=== PATIENT | male | born 1975 ===

== ENCOUNTER 2016-12-25 15:15 | Inpatient (IN) | payer OTHER ==
--- NOTE | 2016-12-25 15:48 | C.PDOC ---
History Of Present Illness 41-year-old male, presents to the emergency department with complaints of worsening chest pain and shortness of breath for the past several days. Associated symptoms include dyspnea on exertion and "frothy cough" with deep inspiration. patient states he gets intermittent "angina" usually once a week for many years but now more frequent, "like I can't get a deep breath in." No fever, swelling or recent prolonged travel. Patient states he was previously on blood pressure meds but no longer takes due to diet and exercise. Pts average blood pressure at home is 120/100. Patient states no prior cardiac cath. Negative stress test in 2007. Patient denies a Hx of asthma. WORSENING CP, SOB X SEV DAYS. +CHE, +"FROTHY COUGH" W DEEP INSPIRATION. PS GETS INTERMIT "ANGINA" USUALLY ONCE A WEEK FOR MANY YEARS BUT NOW MORE FREQ. "LIKE I CANT GET A DEEP BREATH IN". NO FEVER, SWELL, RECENT PROLONGED TRAVEL. PS WAS PREV ON BP MEDS BUT NO LONGER TAKES DUE TO DIET AND EXERCISE. AVG BP @ HOME 120/ 100. PS NO PRIOR CARDIAC CATH. NEG STRESS 2007. DENIES HO ASTHMA. EXAM MILD DIST NONTOXIC LUNGS +TACHYPNEA +COUGH W PLEURITIC BREATHING CTA B/L NO W/R/R CV RRR SINUS TACH NO LEG SWELL, ASYM REMAINDE RNEG Time Seen by Provider: 12/25/16 15:30 Chief Complaint (Nursing): Chest Pain Past Medical History Reviewed: Historical Data, Nursing Documentation, Vital Signs Vital Signs: Last Vital Signs Temp 98.0 F 12/27/16 07:07 Pulse 124 H 12/27/16 07:07 Resp 20 12/27/16 08:21 BP 114/79 12/27/16 09:06 Pulse Ox 94 L 12/27/16 07:07 - Medical History PMH: HTN, Hypercholesterolemia, Pneumonia (2010) Family History: States: No Known Family Hx - Social History Hx Alcohol Use: Yes Hx Substance Use: No - Immunization History Hx Tetanus Toxoid Vaccination: Yes Hx Influenza Vaccination: No Hx Pneumococcal Vaccination: No Review Of Systems Except As Marked, All Systems Reviewed And Found Negative. Constitutional: Negative for: Fever Cardiovascular: Positive for: Chest Pain Respiratory: Positive for: Cough, Shortness of Breath, SOB with Excertion Gastrointestinal: Negative for: Nausea, Vomiting Musculoskeletal: Negative for: Back Pain Neurological: Negative for: Weakness, Numbness Physical Exam - Physical Exam Appears: Non-toxic, No Acute Distress Skin: Warm, Dry, No Rash Head: Atraumatic, Normacephalic Eye(s): bilateral: Normal Inspection Oral Mucosa: Moist Lips: Normal Appearing Neck: Normal ROM Chest: Symmetrical Cardiovascular: Rhythm Regular (tachycardia), No Murmur Respiratory: No Rales, No Rhonchi, No Wheezing, Other ( +TACHYPNEA +COUGH W PLEURITIC BREATHING CTA B/L NO W/R/R) Extremity: Normal ROM, No Pedal Edema ED Course And Treatment - Laboratory Results Result Diagrams: 12/27/16 06:56 12/27/16 06:56 ECG: Interpreted By Me ECG Rhythm: Sinus Tachycardia Rate From EC O2 Sat by Pulse Oximetry: 98 Pulse Ox Interpretation: Normal Progress - Re-Evaluation Re-evaluation Note: 12/25/16 16:43 EXAM UNCH. D/W DR CASTILLO WILL ADMIT - Data Reviewed Data Reviewed: Lab, Diagnostic imaging, EKG, Old records - Critical Care Citical Care: Excluding Proc Time Critical Care Time: 120 minutes - Continuity of Care Discussed patient case with:: Patient, Family-HIPPA compliant, On-call PMD-pt unassigned Disposition Counseled Patient/Family Regarding: Studies Performed, Diagnosis - Disposition Disposition: HOSPITALIZED Disposition Time: 16:43 Condition: STABLE - POA Present On Arrival: None - Clinical Impression Clinical Impression: New onset of congestive heart failure, Pneumonia, Dyspnea Decision To Admit - Pt Status Changed To: Hospital Disposition Of: Inpatient - Admit Certification Admit to Inpatient:: After my assessment, the patient will require hospitalization for at least two midnights. This is because of the severity of symptoms shown, intensity of services needed, and/or the medical risk in this patient being treated as an outpatient. - InPatient: Physician Admission Certification: I certify that this patient requires 2 or more midnights of care for the following reason:: SEE NOTE - . Bed Request Type: Telemetry Admitting Physician: Hugo Castillo Patient Diagnosis: New onset of congestive heart failure, Pneumonia, Dyspnea
[2016-12-25 16:07] LABS: BASO # 0.1 K/uL (0.0-0.2); BASO % 0.7 % (0.0-2.0); EOS # 0.1 K/uL (0.0-0.7); EOS % 1.1 % (0.0-4.0); HEMATOCRIT 43.2 % (35.0-51.0); LYMPH # 1.9 K/uL (1.0-4.3); MEAN CELL VOLUME 75.2 fL (80.0-94.0); MEAN CORPUSCULAR HEMOGLOBIN 24.8 pg (27.0-31.0); MEAN PLATELET VOLUME 10.3 fL (7.2-11.7); MONO # 1.2 K/uL (0.0-0.8); MONO % 11.9 % (0.0-10.0); NRBC % 0.1 % (0.0-2.0); WHITE BLOOD COUNT 10.5 K/uL (4.8-10.8)
[2016-12-25] MEDS ORDERED: cefTRIAXone IV 1 gm in Dextros 50 ML IV STA (16:09)
[2016-12-25] MEDS ORDERED: Azithromycin 500 MG in Sodium Chloride 0.9% 250 ML IV STA (16:09)
--- NOTE | 2016-12-25 16:09 | RAD ---
PROCEDURE: CHEST RADIOGRAPH, 1 VIEW HISTORY: SOB COMPARISON: None available. FINDINGS: LUNGS: Right lower lobe infiltrate. Prominent pulmonary vascularity. PLEURA: No pneumothorax or pleural fluid seen. CARDIOVASCULAR: Pulmonary vascular congestion. OSSEOUS STRUCTURES: No significant abnormalities. VISUALIZED UPPER ABDOMEN: Normal. OTHER FINDINGS: None. IMPRESSION: Right lower lobe infiltrate Pulmonary vascular congestion.
[2016-12-25] MEDS ORDERED: cefTRIAXone IV 1 gm in Dextros 50 ML IVPB ONE (16:16)
[2016-12-25 16:18] LABS: CHLORIDE 101 mmol/L (98-107)
[2016-12-25 16:19] LABS: SODIUM 140 mmol/L (132-148)
[2016-12-25 16:21] LABS: ALB/GLOB RATIO 1.2 (1.0-2.1); ALKALINE PHOSPHATASE 69 U/L (38-126); AST/SGOT 33 U/L (17-59); BILIRUBIN,TOTAL 1.1 mg/dL (0.2-1.3); CARBON DIOXIDE 26 mmol/L (22-30); GFR AFRICAN-AMERICAN > 60; TOTAL PROTEIN 7.1 g/dL (6.3-8.3)
[2016-12-25 16:22] LABS: ALT/SGPT 43 U/L (21-72); BLOOD UREA NITROGEN 19 mg/dL (9-20); CALCIUM 8.6 mg/dl (8.6-10.4); GLUCOSE,RANDOM 111 mg/dL (75-110)
[2016-12-25 16:23] LABS: INR 1.2; PARTIAL THROMBOPLASTIN TIME 31 SECONDS (21-34)
[2016-12-25 16:29] LABS: VENOUS BLOOD GAS BASE EXCESS 4.1 mmol/L (0.0-2.0); VENOUS BLOOD GAS PCO2 41 mmHg (40-60); VENOUS BLOOD PH 7.45 (7.32-7.43)
[2016-12-25] MEDS ORDERED: Azithromycin 500mg/250ML NS 500 MG/250 ML BAG IVPB ONE (16:53)
--- NOTE | 2016-12-25 17:33 | CP.PCM.HP ---
<Mara Edwards - Last Filed: 12/25/16 17:59> History of Present Illness - History of Present Illness History of Present Illness: Medicine Note for Dr. Hercules CC: SOB HPI: 41M with PMHx HTN, HLD, and Hypothyroidism presents to the ED complaining of SOB x 1 week. Patient noticed for the past month, his breath has been more labored when ambulating, walking up stairs, and walking for longer distances. He reports he has to sleep on 3-4 pillows at night, he is unable to lay flat. For the past week he stated he noticed he became SOB just ambulating short distances, and he has had to sleep sitting up completely. He admits to a productive cough with white/ clear sputum, SOB, and some chest pain accompanied with the coughing and sometimes during ambulation. Denied fever, chills, headache, abdominal pain, or urinary symptoms. PMHx: HTN, HLD, and Hypothyroidism PSHx: Denied Meds: Denied All: NKDA SHx: Admitted to smoking cigars 1-2 per month, social drinking, and denied any illicit drug use FM: DM, history of [place] Present on Admission - Present on Admission Any Indicators Present on Admission: No Review of Systems - Cardiovascular Cardiovascular: Chest Pain, Chest Pain with Activity - Respiratory Respiratory: Cough, Dyspnea, Hemoptysis, Dyspnea on Exertion, Pain on Inspiration, Chest Congestion, Pain with Coughing Past Patient History - Past Social History Smoking Status: Light Smoker < 10 Cigarettes Daily - CARDIAC Hx Hypercholesterolemia: Yes Hx Hypertension: Yes - PULMONARY Hx Pneumonia: Yes (2010) - PSYCHIATRIC Hx Substance Use: No Meds Allergies/Adverse Reactions: Allergies Allergy/AdvReac Type Severity Reaction Status Date / Time No Known Allergies Allergy Verified 12/25/16 15:23 Physical Exam - Constitutional Appears: In Acute Distress - Eye Exam Eye Exam: Normal appearance - ENT Exam ENT Exam: Mucous Membranes Moist - Neck Exam Additional comments: + JVD - Respiratory Exam Respiratory Exam: Rales, Rhonchi, NORMAL BREATHING PATTERN - Cardiovascular Exam Cardiovascular Exam: Tachycardia - GI/Abdominal Exam GI & Abdominal Exam: Normal Bowel Sounds, Soft. absent: Distended, Tenderness - Extremities Exam Extremities exam: Positive for: normal inspection, pedal edema, pedal pulses present. Negative for: tenderness - Neurological Exam Neurological exam: Alert, Oriented x3 - Psychiatric Exam Psychiatric exam: Anxious - Skin Skin Exam: Diaphoretic, Normal Color, Warm Results - Vital Signs Recent Vital Signs: Last Vital Signs Temp 98.8 F 12/25/16 15:46 Pulse 125 H 12/25/16 16:49 Resp 22 12/25/16 16:49 BP 140/84 12/25/16 16:49 Pulse Ox 94 L 12/25/16 16:49 - Labs Result Diagrams: 12/25/16 16:00 12/25/16 16:00 Labs: Laboratory Results - last 24 hr 12/25/16 12/25/16 12/25/16 16:00 16:00 16:00 WBC 10.5 RBC 5.75 Hgb 14.3 Hct 43.2 MCV 75.2 L MCH 24.8 L MCHC 33.0 RDW 15.0 H Plt Count 203 MPV 10.3 Neut % (Auto) 68.3 Lymph % (Auto) 18.0 L Millard % (Auto) 11.9 H Eos % (Auto) 1.1 Baso % (Auto) 0.7 Neut # 7.1 H Lymph # 1.9 Millard # 1.2 H Eos # 0.1 Baso # 0.1 PT 13.1 H INR 1.2 APTT 31 D-Dimer, Quantitative < 200 pO2 VBG pH VBG pCO2 VBG HCO3 VBG Total CO2 VBG O2 Sat (Calc) VBG Base Excess VBG Potassium Glucose Lactate FiO2 Sodium 140 Potassium 4.0 Chloride 101 Carbon Dioxide 26 Anion Gap 17 BUN 19 Creatinine 1.0 Est GFR ( Amer) > 60 Est GFR (Non-Af Amer) > 60 Random Glucose 111 H Calcium 8.6 Total Bilirubin 1.1 AST 33 ALT 43 Alkaline Phosphatase 69 Troponin I 0.0340 NT-Pro-B Natriuret Pep 3120 H Total Protein 7.1 Albumin 3.9 Globulin 3.2 Albumin/Globulin Ratio 1.2 Venous Blood Potassium 12/25/16 16:20 WBC RBC Hgb Hct MCV MCH MCHC RDW Plt Count MPV Neut % (Auto) Lymph % (Auto) Millard % (Auto) Eos % (Auto) Baso % (Auto) Neut # Lymph # Millard # Eos # Baso # PT INR APTT D-Dimer, Quantitative pO2 35 VBG pH 7.45 H VBG pCO2 41 VBG HCO3 27.4 VBG Total CO2 29.8 H VBG O2 Sat (Calc) 76.7 H VBG Base Excess 4.1 H VBG Potassium 3.8 Glucose 87 Lactate 1.8 FiO2 21.0 Sodium 141.0 Potassium Chloride 110.0 H Carbon Dioxide Anion Gap BUN Creatinine Est GFR ( Amer) Est GFR (Non-Af Amer) Random Glucose Calcium Total Bilirubin AST ALT Alkaline Phosphatase Troponin I NT-Pro-B Natriuret Pep Total Protein Albumin Globulin Albumin/Globulin Ratio Venous Blood Potassium 3.8 Assessment & Plan - Assessment and Plan (Free Text) Plan: New Onset CHF * Admit to Telemetry * BNP: 3120 * EKG: Sinus Tachycardia @135 * CXR: RLL infiltrate, cardiomegaly, venous congestion * D-dimer <200 * Lasix 40mg IVP Q12H * Cardiology consulted- Dr. Judge- help appreciated * F/U ECHO * F/U ROMIx 2, EKG x2 HTN * Started on ASA 81mg PO daily, Coreg 3.125mg PO BID, Lisinoprl 5mg PO daily HLD * Crestor 5mg PO QHS * F/U Lipid Panel Hypothyroidism * Patient is noncompliant with medications * F/U TSH, T3, T4 Prophylactic Measures * GI PPX: Protonix 20mg PO daily * DVT PPX: SCDs, lovenox 40units SC daily * Heart Healthy Diet with 1500mL fluid restriction * Daily Weights * Strict I & Os DW Grace Conway DO, PGY-1 <Hugo Hercules - Last Filed: 12/26/16 07:31> Results - Vital Signs Recent Vital Signs: Last Vital Signs Temp 98.4 F 12/26/16 04:15 Pulse 118 H 12/26/16 04:15 Resp 20 12/26/16 05:11 BP 110/79 12/26/16 04:15 Pulse Ox 99 12/26/16 04:15 - Labs Result Diagrams: 12/26/16 06:17 12/25/16 16:00 Labs: Laboratory Results - last 24 hr 12/26/16 12/26/16 12/26/16 00:24 06:17 06:17 WBC 12.6 H RBC 5.57 Hgb 13.8 Hct 41.6 MCV 74.8 L MCH 24.8 L MCHC 33.1 RDW 15.0 H Plt Count 196 MPV 10.1 Neut % (Auto) 66.7 Lymph % (Auto) 20.6 Millard % (Auto) 10.0 Eos % (Auto) 1.8 Baso % (Auto) 0.9 Neut # 8.4 H Lymph # 2.6 Millard # 1.3 H Eos # 0.2 Baso # 0.1 Total Creatine Kinase 204 H CK-MB (Mass) 0.64 Troponin I, Quant 0.0360 Free T4 1.11 Attending/Attestation - Attestation I have personally seen and examined this patient.: Yes I have fully participated in the care of the patient.: Yes I have reviewed all pertinent clinical information: Yes Notes (Text): Medical Attending: Patient was seen and examined by me as well, agree with the above note by the resident. As mentioned above in the resident note the patient remarked that he thought he was doing ok until several weeks ago he noticed CHE that seemed to get worse, orthopnea as well. Especially at night. For now will start giving IV Lasix, follow the CXRAYs and how the patient is breathing. HE does have cardiomegalm on the film, will also check an echo as well. His HR was elevated, sinus when we saw him probably from the fluid overload. Also history of hypothyroidism so will check TSH as well. Cardiac enymes, repeat EKGs. He explains that he has a history of HTN but has not taken medication in sometime. For now BRODY I, Statin, ASA, and he will also need BB for now a very low dose and then more later on. thank you Hugo Hercules
[2016-12-26 06:32] LABS: BASO # 0.1 K/uL (0.0-0.2); BASO % 0.9 % (0.0-2.0); EOS # 0.2 K/uL (0.0-0.7); EOS % 1.8 % (0.0-4.0); HEMATOCRIT 41.6 % (35.0-51.0); LYMPH # 2.6 K/uL (1.0-4.3); LYMPH % 20.6 % (20.0-40.0); MEAN CELL VOLUME 74.8 fL (80.0-94.0); MEAN CORPUSCULAR HEMOGLOBIN 24.8 pg (27.0-31.0); MEAN CORPUSCULAR HGB CONC 33.1 g/dL (33.0-37.0); MEAN PLATELET VOLUME 10.1 fL (7.2-11.7); MONO # 1.3 K/uL (0.0-0.8); NRBC % 0.1 % (0.0-2.0); WHITE BLOOD COUNT 12.6 K/uL (4.8-10.8)
[2016-12-26 06:59] LABS: CHLORIDE 99 mmol/L (98-107); POTASSIUM 3.8 mmol/L (3.6-5.2); SODIUM 137 mmol/L (132-148)
[2016-12-26 07:01] LABS: ALB/GLOB RATIO 1.2 (1.0-2.1); ALKALINE PHOSPHATASE 72 U/L (38-126); AST/SGOT 36 U/L (17-59); BILIRUBIN,TOTAL 1.3 mg/dL (0.2-1.3); BLOOD UREA NITROGEN 17 mg/dL (9-20); CARBON DIOXIDE 27 mmol/L (22-30); CHOLESTEROL 182 mg/dL (0-199); GFR AFRICAN-AMERICAN > 60; TOTAL PROTEIN 6.8 g/dL (6.3-8.3)
[2016-12-26 07:02] LABS: ALT/SGPT 36 U/L (21-72); CALCIUM 8.6 mg/dl (8.6-10.4); GLUCOSE,RANDOM 114 mg/dL (75-110); MAGNESIUM 1.9 mg/dL (1.6-2.3); PHOSPHOROUS 4.1 mg/dL (2.5-4.5)
[2016-12-26 07:20] LABS: THYROID STIMULATING HORMONE 4.43 mIU/L (0.46-4.68)
[2016-12-26 08:22] LABS: FT3 4.65 pg/mL (2.77-5.27)
[2016-12-26] MEDS: Enoxaparin 40 mg Syringe SC SCH (09:48)
[2016-12-26] MEDS ORDERED: Pantoprazole 20 mg EC Tab PO SCH (10:00)
--- NOTE | 2016-12-26 11:19 | CP.PCM.PN ---
<Mara Edwards - Last Filed: 12/26/16 11:16> Subjective - Date & Time of Evaluation Date of Evaluation: 12/26/16 Time of Evaluation: 07:00 - Subjective Subjective: Medicine Note for Dr. Hercules, Patient was seen and examined at bedside. Patient reported his breathing slightly improved after receiving the lasix, however he was still unable to sleep last night due to SOB. Patient continues to have a productive cough with white/ clear sputum. Admitted to diaphoresis, cough, SOB. Denied fever, chills, headache, chest pain, abdominal pain, n/v/d/c, or urinary symptoms. Objective - Vital Signs/Intake and Output Vital Signs (last 24 hours): Temp Pulse Resp BP Pulse Ox 97.6 F 118 H 20 106/74 98 12/26/16 07:29 12/26/16 10:55 12/26/16 08:27 12/26/16 09:49 12/26/16 07:29 Intake and Output: 12/26/16 12/26/16 06:59 18:59 Intake Total 390 Output Total 2700 Balance -2310 - Medications Medications: Current Medications Aspirin (Aspirin Chewable) 81 mg PO DAILY [facility] Last Admin: 12/26/16 09:48 Dose: 81 mg Carvedilol (Coreg) 3.125 mg PO BID [facility] Last Admin: 12/26/16 09:48 Dose: 3.125 mg Enoxaparin Sodium (Lovenox) 40 mg SC DAILY [facility] Last Admin: 12/26/16 09:48 Dose: 40 mg Furosemide (Lasix) 40 mg IVP Q12 [facility] Last Admin: 12/26/16 09:49 Dose: 40 mg Ceftriaxone Sodium (Rocephin Iv 1 Gm Duplex) 50 mls @ 100 mls/hr IVPB DAILY [facility] Azithromycin (Zithromax 500mg In Ns Addvantage) 500 mg in 250 mls @ 167 mls/hr IVPB Q24H [facility] Lisinopril (Zestril) 5 mg PO DAILY [facility] Last Admin: 12/26/16 09:48 Dose: 5 mg Pantoprazole Sodium (Protonix Ec Tab) 20 mg PO DAILY [facility] Last Admin: 12/26/16 09:48 Dose: 20 mg Rosuvastatin Calcium (Crestor) 5 mg PO HS [facility] Last Admin: 12/25/16 21:46 Dose: 5 mg - Labs Labs: 12/26/16 06:17 12/26/16 06:17 PT 13.1 SECONDS (9.7-12.2) H 12/25/16 16:00 INR 1.2 12/25/16 16:00 APTT 31 SECONDS (21-34) 12/25/16 16:00 - Constitutional Appears: Other (Diaphoretic, mild distress) - Head Exam Head Exam: NORMAL INSPECTION, NORMOCEPHALIC - Respiratory Exam Respiratory Exam: Rhonchi, Wheezes - Cardiovascular Exam Cardiovascular Exam: Tachycardia - GI/Abdominal Exam GI & Abdominal Exam: Soft, Normal Bowel Sounds. absent: Distended, Tenderness - Extremities Exam Extremities Exam: Normal Inspection. absent: Pedal Edema, Tenderness - Neurological Exam Neurological Exam: Alert, Awake, Oriented x3 - Skin Skin Exam: Dry, Intact, Normal Color, Warm Assessment and Plan - Assessment and Plan (Free Text) Plan: New Onset CHF * Admit to Telemetry * BNP: 3120 * EKG: Sinus Tachycardia @135 * CXR: RLL infiltrate, cardiomegaly, venous congestion * D-dimer <200 * Lasix 40mg IVP Q12H * ROMIs negative, no changes on EKG * Cardiology consulted- Dr. Hillman- help appreciated * F/U ECHO Possible PNA * CXR: RLL infiltrate, cardiomegaly, venous congestion * Started on Azithromycin and Rocephin 12/25 * CT Chest w/o Contrast HTN * Started on ASA 81mg PO daily, Coreg 3.125mg PO BID, Lisinoprl 5mg PO daily HLD * Crestor 5mg PO QHS * Lipid Panel- Triglycerides 157 Hypothyroidism * Patient is noncompliant with medications * TSH, T3, T4 - WNL Prophylactic Measures * GI PPX: Protonix 20mg PO daily * DVT PPX: SCDs, lovenox 40units SC daily * Heart Healthy Diet with 1500mL fluid restriction * Daily Weights * Strict I & Os DW Grace Conway DO, PGY-1 <Hugo Hercules - Last Filed: 12/26/16 12:17> Objective - Vital Signs/Intake and Output Vital Signs (last 24 hours): Temp Pulse Resp BP Pulse Ox 97.6 F 118 H 20 106/74 98 12/26/16 07:29 12/26/16 10:55 12/26/16 08:27 12/26/16 09:49 12/26/16 07:29 Intake and Output: 12/26/16 12/26/16 06:59 18:59 Intake Total 390 Output Total 2700 Balance -2310 - Medications Medications: Current Medications Aspirin (Aspirin Chewable) 81 mg PO DAILY [facility] Last Admin: 12/26/16 09:48 Dose: 81 mg Carvedilol (Coreg) 3.125 mg PO BID [facility] Last Admin: 12/26/16 09:48 Dose: 3.125 mg Enoxaparin Sodium (Lovenox) 40 mg SC DAILY [facility] Last Admin: 12/26/16 09:48 Dose: 40 mg Furosemide (Lasix) 40 mg IVP Q12 [facility] Last Admin: 12/26/16 09:49 Dose: 40 mg Ceftriaxone Sodium (Rocephin Iv 1 Gm Duplex) 50 mls @ 100 mls/hr IVPB DAILY [facility] Azithromycin 500 mg/ Sodium (Chloride) 250 mls @ 167 mls/hr IVPB Q24H [facility] Lisinopril (Zestril) 5 mg PO DAILY [facility] Last Admin: 12/26/16 09:48 Dose: 5 mg Pantoprazole Sodium (Protonix Ec Tab) 20 mg PO DAILY [facility] Last Admin: 12/26/16 09:48 Dose: 20 mg Rosuvastatin Calcium (Crestor) 5 mg PO HS [facility] Last Admin: 12/25/16 21:46 Dose: 5 mg - Labs Labs: 12/26/16 06:17 12/26/16 06:17 PT 13.1 SECONDS (9.7-12.2) H 12/25/16 16:00 INR 1.2 12/25/16 16:00 APTT 31 SECONDS (21-34) 12/25/16 16:00 Attending/Attestation - Attestation I have personally seen and examined this patient.: Yes I have fully participated in the care of the patient.: Yes I have reviewed all pertinent clinical information, including history, physical exam and plan: Yes Notes (Text): 12/26/16 12:08 Medical Attending: Patient was seen and examined by me. Agree with the above note by the resident. He is still short of breath however reporting improvment from before. The WBC is 12, and so because he is still persistent in shortness of breath will check CT of the chest without contrast. Also cover with IV abx as well Currently pending echo results thank you Hugo Hercules
[2016-12-26] MEDS ORDERED: Azithromycin 500 MG in Sodium Chloride 0.9% 250 ML IVPB SCH (12:00)
--- NOTE | 2016-12-26 12:26 | CT ---
PROCEDURE: CT Chest without contrast HISTORY: r/o pneumonia COMPARISON: None. TECHNIQUE: Contiguous axial images were obtained through the chest without intravenous contrast enhancement. Sagittal and coronal reconstructions were performed. Radiation dose (DLP): 368722 mGy-cm. This CT exam was performed using one or more of the following dose reduction techniques: Automated exposure control, adjustment of the mA and/or kV according to patient size, and/or use of iterative reconstruction technique. FINDINGS: LUNGS: Multifocal alveolar infiltrates affecting right upper lobe, right middle lobe and right lower lobe. Subsegmental infiltrate left upper lobe. Linear atelectasis/ scarring in the lingula and left lower lobe. No discrete pulmonary nodules or masses. MEDIASTINUM: Unremarkable thoracic aorta. No aneurysm. Normal sized heart. Main pulmonary artery unremarkable. No vascular congestion. Multiple enlarged mediastinal lymph nodes the largest is and azygos node measuring 1.9 x 2.2 cm. The preponderance of these nodes however 1.5 cm and less. PLEURA: No pleural fluid. No pneumothorax. BONES: No fracture. No destructive lesion. UPPER ABDOMEN: Multiple pathic masses right lobe and left lobe the largest measures 1.5 cm. Mean Hounsfield unit values do not exceed 10 for any of the masses. New line Incidental finding(s): Mildly enlarged left adrenal gland likely small adenoma. OTHER FINDINGS: None. IMPRESSION: Multifocal infiltrates primarily affecting all lobes of the right lung and to lesser extent left upper lobe likely infectious/ inflammatory. Mediastinal adenopathy. , on nonspecific. No evidence of axillary or supraclavicular adenopathy.
[2016-12-26] MEDS: Calcium Carbonate 500 mg Chewable Antacid Tab PO SCH ×2 (13:50→22:45)
[2016-12-26] MEDS ORDERED: cefTRIAXone IV 1 gm in Dextros 50 ML IVPB SCH (14:00)
--- NOTE | 2016-12-26 16:30 | CON ---
DATE: 12/26/2016 REQUESTING PHYSICIAN: The hospitalist group. LOCATION: Presently in room 651-B. REASON FOR CONSULTATION: Requested to see this 41-year-old male due to congestive heart philaranza nunes. HISTORY OF PRESENT ILLNESS: The patient has a history of hypertension for many, many years and he wa s hospitalized in 2003 for hypertension and at which time he was told he said that his heart was weak and enlarged. Since that situation, he was taking medications off and on and doing relatively well, working hard. However, over the last several weeks, he noticed that he is short of breath with mild exertion and he has been coughing for the last several days. He came to the Emergency Room last nig ht and he was immediately attended by the hospitalist staff, and empirically he was given antibiotics as well as anti-decongestive treatment because of the combination of heart failure as well as a pneu monia. At this point in time, he claims he is feeling a little better. I saw him while the attending nurse was taking care of his IV medications. ALLERGIES: He denies any allergies. MEDICATIONS: He was not taking medications on the outside. SOCIAL HISTORY: He used to work in a [employer] place. He himself has tattoos all over his body, from t he top of his head all the way down to the arms, fingers, lets, etc. He claimed he was tested years back for hepatitis B as well as for HIV. He smokes rarely cigars. PAST MEDICAL HISTORY: He also has a history of hypothyroidism and diabetes. No history of any coron marcus artery disease. I mention this because somewhat in the chart there is some place I read that he had a stent deployed in 2013, but he is denying having any stents. REVIEW OF SYSTEMS: Other than the above, they are otherwise negative. PHYSICAL EXAMINATION: GENERAL: Reveals a relatively young male, very pleasant, appears in no distress, although he was sti ll getting oxygen now, and he actually feels a little better since arrival. VITAL SIGNS: Blood pressure is about 110/60. Continuous cardiac monitoring shows marginal sinus tac hycardia. Respiratory rate is about 22 per minute. He feels clinically afebrile. SKIN: Again shows tattoos all over the body. No redness. No track beltrán otherwise. HEAD, EARS, NOSE AND THROAT: Otherwise negative. CHEST: With scattered subcrepitation. No rhonchi at this time. CARDIAC: Jugular veins not distended at 45 degrees in bed. Heart sounds with a summation gallop, mariana rderline tachycardic. There is a slight murmur noted along the sternal border, grade II/. ABDOMEN: Soft, no gross organomegaly. CENTRAL NERVOUS SYSTEM: Alert, oriented, moving all extremities normally. COMPLIMENTARY DATA: From the cardiological viewpoint there are several electrocardiograms showing sl ight sinus tachycardia, some with nonspecific ST-T changes; nothing spectacular. The initial proBNP elevated about 3000 or so with normal troponins. Chest x-ray: Cardiomegaly and infiltrates with pul monary congestion just about everywhere. Very, very important - an echocardiogram that was done and just a few minutes ago, I just saw it. It shows severely depressed biventricular function, and the left ventricle is globular and with perhaps borderline hypertrophy but it is significantly dilated and with profoundly decreased overall systoli c function. The anterior wall appears to be slightly more hypokinetic, however, this may be just due to the severe cardiomyopathy. In addition, there is some mild to moderate mitral regurgitation, pavan e mild tricuspid regurgitation - all functional. In addition, there is significant diastolic dysfunc tion with at least a grade III transmitral Doppler flow pattern. The left atrial pressure is elevate d by tissue Doppler. IMPRESSION: Biventricular acute on chronic systolic and diastolic heart failure; etiology unclear bu t most likely hypertensive in origin. SUGGESTION: I have reviewed the treatment approach at this point in time, and I concur with you to c ontinue loop diuretics, BRODY inhibitors as well as beta gustavo in the form as it is right now with ca rvedilol. Obviously this medication will need to be optimized over time. Even though he has no syncope and no evidence of any potentially lethal arrhythmias at this point, a possibility is that prior to discharge to consult the yoke presser looking for the possibility to have an external defibrillator and vest for several months while his cardiac function improves. If this does not happen and continues to be in the same range, then he should be considered for an im plantable automatic defibrillator. Clemente Hillman MD cc: [id number] TT: 12/26/2016 16:29:33 Confirmation # [id number] Dictation # [id number] mn
--- NOTE | 2016-12-26 20:20 | CARD ---
APPROVED REPORT EXAM: Two-dimensional and M-mode echocardiogram with Doppler and color Doppler. Other Information Quality : GoodRhythm : NSR INDICATION Dyspnea CAD Congestive Heart Failure NEW ON SET CHF, PNEUMONIA RISK FACTORS Hypertension M-Mode DIMENSIONS RVDd1.84 (2.1-3.2cm)Left Atrium (MM)4.06 (2.5-4.0cm) IVSd0.94 (0.7-1.1cm)Aortic Root3.44 (2.2-3.7cm) LVDd7.26 (4.0-5.6cm)Aortic Cusp Exc.2.03 (1.5-2.0cm) PWd1.13 (0.7-1.1cm)FS (%) 9 % LVDs6.64 (2.0-3.8cm)LVEF (%)18 (>50%) Aortic Valve AoV Peak Yasblvfd42.7cm/Jayesh Peak GR.3mmHg Mitral Valve MV E Arcktvks316.3cm/sMV A Bmktkimm22.0cm/sE/A ratio3.0 TDI E/Lateral E'0.0E/Medial E'0.0 Tricuspid Valve TR Peak Dauntltl413kh/sTR Peak Gr.[id number] LEFT VENTRICLE The Left Ventricle is severely dilated. There is normal left ventricular wall thickness. The systolic function is severely impaired. There is global hypokinesis of the left ventricle. No left ventricle thrombus noted on this study. RIGHT VENTRICLE The right ventricle is normal size. There is normal right ventricular wall thickness. RV Systolic function is severely reduced. ATRIA The left atrium is borderline dilated. The right atrium size is normal. AORTIC VALVE The aortic valve is normal in structure. No aortic regurgitation is present. MITRAL VALVE The mitral valve is normal in structure. Mitral regurgitation is moderate. TRICUSPID VALVE The tricuspid valve is normal in structure. GREAT VESSELS The aortic root is normal in size. The IVC is normal in size and collapses >50% with inspiration. PERICARDIAL EFFUSION There is no pericardial effusion. <Conclusion> The Left Ventricle is severely dilated. There is normal left ventricular wall thickness. The systolic function is severely impaired. There is global hypokinesis of the left ventricle. No left ventricle thrombus noted on this study. RV Systolic function is severely reduced. Mitral regurgitation is moderate.
--- NOTE | 2016-12-27 01:57 | CARD ---
APPROVED REPORT EKG Measurement Heart [id number] <Conclusion> Sinus tachycardia Nonspecific T wave abnormality Abnormal ECG
[2016-12-27 07:10] LABS: BASO # 0.1 K/uL (0.0-0.2); BASO % 0.8 % (0.0-2.0); EOS # 0.4 K/uL (0.0-0.7); EOS % 2.7 % (0.0-4.0); HEMATOCRIT 43.7 % (35.0-51.0); LYMPH # 1.9 K/uL (1.0-4.3); LYMPH % 13.2 % (20.0-40.0); MEAN CELL VOLUME 75.7 fL (80.0-94.0); MEAN CORPUSCULAR HEMOGLOBIN 24.6 pg (27.0-31.0); MEAN CORPUSCULAR HGB CONC 32.5 g/dL (33.0-37.0); MEAN PLATELET VOLUME 10.6 fL (7.2-11.7); MONO % 6.8 % (0.0-10.0); RED CELL DISTRIBUTION WIDTH 14.9 % (11.5-14.5); WHITE BLOOD COUNT 14.1 K/uL (4.8-10.8)
[2016-12-27 07:13] LABS: CHLORIDE 99 mmol/L (98-107)
[2016-12-27 07:14] LABS: POTASSIUM 3.8 mmol/L (3.6-5.2); SODIUM 139 mmol/L (132-148)
[2016-12-27 07:16] LABS: ALB/GLOB RATIO 1.1 (1.0-2.1); ALKALINE PHOSPHATASE 64 U/L (38-126); ALT/SGPT 40 U/L (21-72); AST/SGOT 37 U/L (17-59); BILIRUBIN,TOTAL 0.9 mg/dL (0.2-1.3); BLOOD UREA NITROGEN 22 mg/dL (9-20); CARBON DIOXIDE 31 mmol/L (22-30); GFR AFRICAN-AMERICAN > 60; GLUCOSE,RANDOM 98 mg/dL (75-110); TOTAL PROTEIN 6.9 g/dL (6.3-8.3)
[2016-12-27 07:17] LABS: CALCIUM 8.4 mg/dl (8.6-10.4); MAGNESIUM 2.3 mg/dL (1.6-2.3); PHOSPHOROUS 4.1 mg/dL (2.5-4.5)
[2016-12-27] MEDS: Calcium Carbonate 500 mg Chewable Antacid Tab PO SCH ×2 (09:05→18:31)
[2016-12-27] MEDS: Enoxaparin 40 mg Syringe SC SCH (09:06)
[2016-12-27] MEDS: Magnesium Sulfate 1 gm in D5W 1 GM/100 ML BAG IVPB SCH ×2 (09:06→10:16)
[2016-12-27] MEDS: Pantoprazole 40 mg EC Tab PO SCH (09:14)
--- NOTE | 2016-12-27 09:30 | CP.PCM.CON ---
History of Present Illness - History of Present Illness History of Present Illness: 41 year old male who presented to [facility] after feeing worse dyspnea on exertion shortness of breath. Family history of diabetes. 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 Has been drinking as well. No cp, nausea dysuria Review of Systems - Review of Systems Systems not reviewed;Unavailable: Acuity of Condition - Constitutional Constitutional: absent: Sleep Apnea - EENT Eyes: absent: Blurred Vision Ears: absent: Ear Discharge Nose/Mouth/Throat: absent: Nasal Discharge - Cardiovascular Cardiovascular: Dyspnea, Dyspnea on Exertion - Respiratory Respiratory: Dyspnea, Dyspnea on Exertion - Gastrointestinal Gastrointestinal: absent: Belching - Genitourinary Genitourinary: absent: Dysuria - Musculoskeletal Musculoskeletal: absent: Arthralgias - Integumentary Integumentary: absent: Bleeding Lesions - Neurological Neurological: absent: Focal Weakness - Psychiatric Psychiatric: absent: Anxiety - Hematologic/Lymphatic Hematologic: absent: Easy Bleeding Past Patient History - Past Medical History & Family History Past Medical History?: Yes - Past Social History Smoking Status: Light Smoker < 10 Cigarettes Daily - CARDIAC Hx Hypercholesterolemia: Yes Hx Hypertension: Yes - PULMONARY Hx Pneumonia: Yes (2010) - RENAL Hx Kidney Stones: Yes - ENDOCRINE/METABOLIC Hx Endocrine Disorders: Yes Hx Hypothyroidism: Yes - MUSCULOSKELETAL/RHEUMATOLOGICAL Hx Falls: No - PSYCHIATRIC Hx Substance Use: No - SURGICAL HISTORY Hx Tonsillectomy: Yes - ANESTHESIA Hx Anesthesia: Yes Hx Anesthesia Reactions: No Hx Malignant Hyperthermia: No Has any member of the family had a problem w/ anesthesia?: No Meds Allergies/Adverse Reactions: Allergies Allergy/AdvReac Type Severity Reaction Status Date / Time No Known Allergies Allergy Verified 12/25/16 15:23 - Medications Medications: Current Medications Aspirin (Aspirin Chewable) 81 mg PO DAILY [facility] Last Admin: 12/27/16 09:05 Dose: 81 mg Calcium Carbonate (Tums) 500 mg PO BID [facility] Last Admin: 12/27/16 09:05 Dose: 500 mg Carvedilol (Coreg) 3.125 mg PO BID [facility] Last Admin: 12/27/16 09:05 Dose: 3.125 mg Enoxaparin Sodium (Lovenox) 40 mg SC DAILY [facility] Last Admin: 12/27/16 09:06 Dose: 40 mg Furosemide (Lasix) 20 mg IVP Q12 [facility] Last Admin: 12/27/16 09:06 Dose: 20 mg Ceftriaxone Sodium (Rocephin Iv 1 Gm Duplex) 50 mls @ 100 mls/hr IVPB DAILY [facility] Last Admin: 12/26/16 13:40 Dose: 100 mls/hr Azithromycin 500 mg/ Sodium (Chloride) 250 mls @ 167 mls/hr IVPB Q24H [facility] Last Admin: 12/26/16 12:06 Dose: 167 mls/hr Magnesium Sulfate/Dextrose (Magnesium Sulfate 1 Gm/100 Ml D5w) 1 gm in 100 mls @ 300 mls/hr IVPB Q30M [facility] Stop: 12/27/16 09:49 Last Admin: 12/27/16 09:06 Dose: 300 mls/hr Lisinopril (Zestril) 5 mg PO DAILY [facility] Last Admin: 12/27/16 09:05 Dose: 5 mg Pantoprazole Sodium (Protonix Ec Tab) 40 mg PO DAILY [facility] Last Admin: 12/27/16 09:14 Dose: 40 mg Rosuvastatin Calcium (Crestor) 5 mg PO HS [facility] Last Admin: 12/26/16 22:45 Dose: 5 mg Physical Exam - Constitutional Appears: No Acute Distress - Head Exam Head Exam: ATRAUMATIC - Eye Exam Eye Exam: Normal appearance - ENT Exam ENT Exam: Mucous Membranes Moist - Respiratory Exam Respiratory Exam: Rhonchi, NORMAL BREATHING PATTERN - Cardiovascular Exam Cardiovascular Exam: REGULAR RHYTHM, Systolic Murmur - GI/Abdominal Exam GI & Abdominal Exam: Normal Bowel Sounds, Soft - Exam External exam: NORMAL EXTERNAL EXAM - Extremities Exam Extremities exam: Positive for: normal inspection - Neurological Exam Neurological exam: Alert - Psychiatric Exam Psychiatric exam: Normal Affect, Normal Mood - Skin Skin Exam: Dry Results - Vital Signs Recent Vital Signs: Last Vital Signs Temp 98.0 F 12/27/16 07:07 Pulse 124 H 12/27/16 07:07 Resp 20 12/27/16 08:21 BP 114/79 12/27/16 09:06 Pulse Ox 94 L 12/27/16 07:07 - Labs Result Diagrams: 12/27/16 06:56 12/27/16 06:56 Labs: Laboratory Results - last 24 hr 12/26/16 12/27/16 12/27/16 12:05 06:56 06:56 WBC 14.1 H RBC 5.77 Hgb 14.2 Hct 43.7 MCV 75.7 L MCH 24.6 L MCHC 32.5 L RDW 14.9 H Plt Count 235 MPV 10.6 Neut % (Auto) 76.5 H Lymph % (Auto) 13.2 L Jackson % (Auto) 6.8 Eos % (Auto) 2.7 Baso % (Auto) 0.8 Neut # 10.7 H Lymph # 1.9 Jackson # 1.0 H Eos # 0.4 Baso # 0.1 Sodium 139 Potassium 3.8 Chloride 99 Carbon Dioxide 31 H Anion Gap 13 BUN 22 H Creatinine 1.1 Est GFR ( Amer) > 60 Est GFR (Non-Af Amer) > 60 Random Glucose 98 Calcium 8.4 L Phosphorus 4.1 Magnesium 2.3 Total Bilirubin 0.9 AST 37 ALT 40 Alkaline Phosphatase 64 Total Creatine Kinase 215 H CK-MB (Mass) 0.65 Troponin I, Quant 0.0230 Total Protein 6.9 Albumin 3.7 Globulin 3.3 Albumin/Globulin Ratio 1.1 Assessment & Plan (1) Dyspnea Assessment and Plan: Acute exacerbation of CHF echo 18 Percent ICD vest for dilated cardiomyopathy with reduced ejection fraction for primary prophylaxis against sudden cardiac optimal CHF meds we discussed coming to the [facility] if he has trouble paying for medications Also no etoh or salt Status: Acute (2) New onset of congestive heart failure Status: Acute
--- NOTE | 2016-12-27 12:06 | CP.PCM.PN ---
<Mara Edwards - Last Filed: 12/27/16 12:03> Subjective - Date & Time of Evaluation Date of Evaluation: 12/27/16 Time of Evaluation: 07:00 - Subjective Subjective: Medicine Note for Dr. Hercules, Patient was seen and examined at bedside. Patient reported his breathing slightly improved after receiving the lasix, however now he feels dehydrated ( dry mouth). He refused his night dose of lasix. Patient was seen by Dr. Peralta for LifeVest. Patient still has some SOB, but it has improved since admission. Denied fever, chills, headache, chest pain, abdominal pain, n/v/d/c, or urinary symptoms. Objective - Vital Signs/Intake and Output Vital Signs (last 24 hours): Temp Pulse Resp BP Pulse Ox 98.0 F 124 H 20 114/79 98 12/27/16 07:07 12/27/16 07:07 12/27/16 08:21 12/27/16 09:06 12/27/16 09:55 Intake and Output: 12/27/16 12/27/16 06:59 18:59 Intake Total 350 Output Total 900 Balance -550 - Medications Medications: Current Medications Aspirin (Aspirin Chewable) 81 mg PO DAILY [facility] Last Admin: 12/27/16 09:05 Dose: 81 mg Calcium Carbonate (Tums) 500 mg PO BID [facility] Last Admin: 12/27/16 09:05 Dose: 500 mg Carvedilol (Coreg) 6.25 mg PO BID [facility] Enoxaparin Sodium (Lovenox) 40 mg SC DAILY [facility] Last Admin: 12/27/16 09:06 Dose: 40 mg Furosemide (Lasix) 20 mg IVP Q12 [facility] Last Admin: 12/27/16 09:06 Dose: 20 mg Cefepime HCl 1 gm/ Dextrose 50 mls @ 100 mls/hr IVPB Q12H [facility] Lisinopril (Zestril) 5 mg PO DAILY [facility] Last Admin: 12/27/16 09:05 Dose: 5 mg Pantoprazole Sodium (Protonix Ec Tab) 40 mg PO DAILY [facility] Last Admin: 12/27/16 09:14 Dose: 40 mg Rosuvastatin Calcium (Crestor) 5 mg PO HS [facility] Last Admin: 12/26/16 22:45 Dose: 5 mg Spironolactone (Aldactone) 25 mg PO DAILY [facility] Last Admin: 12/27/16 10:57 Dose: 25 mg - Labs Labs: 12/27/16 06:56 12/27/16 06:56 PT 13.1 SECONDS (9.7-12.2) H 12/25/16 16:00 INR 1.2 12/25/16 16:00 APTT 31 SECONDS (21-34) 12/25/16 16:00 - Constitutional Appears: No Acute Distress - Head Exam Head Exam: NORMAL INSPECTION, NORMOCEPHALIC - Respiratory Exam Respiratory Exam: Clear to Ausculation Bilateral, NORMAL BREATHING PATTERN. absent: Rales, Wheezes - Cardiovascular Exam Cardiovascular Exam: Tachycardia - GI/Abdominal Exam GI & Abdominal Exam: Soft, Normal Bowel Sounds. absent: Distended, Tenderness - Extremities Exam Extremities Exam: Normal Inspection. absent: Pedal Edema, Tenderness - Neurological Exam Neurological Exam: Alert, Awake, Oriented x3 - Skin Skin Exam: Dry, Intact, Normal Color, Warm Assessment and Plan - Assessment and Plan (Free Text) Plan: New Onset CHF * Admit to Telemetry * BNP: 3120 * EKG: Sinus Tachycardia @135 * CXR: RLL infiltrate, cardiomegaly, venous congestion * D-dimer <200 * Lasix 20mg IVP Q12H * ROMIs negative, no changes on EKG * Cardiology consulted- Dr. Hillman- Suggested EP Cardio consult. * ECHO ~18% * Dr. Peralta consulted- ICD vest for dilated cardiomyopathy with reduced ejection fraction for primary prophylaxis against sudden cardiac . Optimal CHF meds we discussed coming to [facility] if he has trouble paying for medications Possible PNA * CXR: RLL infiltrate, cardiomegaly, venous congestion * Stopped Azithromycin due to QTc prolongation, stopped rocephin, patient switched to Cefepime * CT Chest w/o Contrast: Multifocal infiltrates primarily affecting all lobes of the right lung and to lesser extent left upper lobe likely infectious/ inflammatory. Mediastinal adenopathy. , on nonspecific. No evidence of axillary or supraclavicular adenopathy. * F/U CXR: HTN * Started on ASA 81mg PO daily, Coreg 3.125mg PO BID, Lisinoprl 5mg PO daily HLD * Crestor 5mg PO QHS * Lipid Panel- Triglycerides 157 Hypothyroidism * Patient is noncompliant with medications * TSH, T3, T4 - WNL Prophylactic Measures * GI PPX: Protonix 20mg PO daily * DVT PPX: SCDs, lovenox 40units SC daily * Heart Healthy Diet with 1500mL fluid restriction * Daily Weights * Strict I & Os DW Grace Conway DO, PGY-1 <Hugo Hercules H - Last Filed: 12/27/16 14:28> Objective - Vital Signs/Intake and Output Vital Signs (last 24 hours): Temp Pulse Resp BP Pulse Ox 98.0 F 124 H 20 114/79 98 12/27/16 07:07 12/27/16 07:07 12/27/16 08:21 12/27/16 09:06 12/27/16 09:55 Intake and Output: 12/27/16 12/27/16 06:59 18:59 Intake Total 350 Output Total 900 Balance -550 - Medications Medications: Current Medications Aspirin (Aspirin Chewable) 81 mg PO DAILY [facility] Last Admin: 12/27/16 09:05 Dose: 81 mg Calcium Carbonate (Tums) 500 mg PO BID [facility] Last Admin: 12/27/16 09:05 Dose: 500 mg Carvedilol (Coreg) 6.25 mg PO BID [facility] Enoxaparin Sodium (Lovenox) 40 mg SC DAILY [facility] Last Admin: 12/27/16 09:06 Dose: 40 mg Furosemide (Lasix) 20 mg IVP Q12 [facility] Last Admin: 12/27/16 09:06 Dose: 20 mg Cefepime HCl 1 gm/ Dextrose 50 mls @ 100 mls/hr IVPB Q12H [facility] Last Admin: 12/27/16 12:35 Dose: 100 mls/hr Lisinopril (Zestril) 5 mg PO DAILY [facility] Last Admin: 12/27/16 09:05 Dose: 5 mg Pantoprazole Sodium (Protonix Ec Tab) 40 mg PO DAILY [facility] Last Admin: 12/27/16 09:14 Dose: 40 mg Rosuvastatin Calcium (Crestor) 5 mg PO HS [facility] Last Admin: 12/26/16 22:45 Dose: 5 mg Spironolactone (Aldactone) 25 mg PO DAILY [facility] Last Admin: 12/27/16 10:57 Dose: 25 mg - Labs Labs: 12/27/16 06:56 12/27/16 06:56 PT 13.1 SECONDS (9.7-12.2) H 12/25/16 16:00 INR 1.2 12/25/16 16:00 APTT 31 SECONDS (21-34) 12/25/16 16:00 Attending/Attestation - Attestation I have personally seen and examined this patient.: Yes I have fully participated in the care of the patient.: Yes I have reviewed all pertinent clinical information, including history, physical exam and plan: Yes Notes (Text): 12/27/16 14:27 Medical Attending: Patient was seen and examined by me. Agree with the above note by the resident. The patient has a very low EF and so we had a very long discussion with the patient. Will continue with medications. Also we are not waiting on placement of a life vest. Whenever the life vest comes he can then be discharged. thank you Hugo Hercules
--- NOTE | 2016-12-27 13:48 | RAD ---
HISTORY: pneumonia, CHF COMPARISON: 12/25/2016 TECHNIQUE: Chest PA and lateral FINDINGS: LUNGS: Improved aeration of right lung. Upper lower lobe infiltrates have improved but not completely resolved. PLEURA: No significant pleural effusion identified. No pneumothorax apparent. CARDIOVASCULAR: Normal. OSSEOUS STRUCTURES: No significant abnormalities. VISUALIZED UPPER ABDOMEN: Normal. OTHER FINDINGS: None. IMPRESSION: Improving infiltrates right upper lobe, right lower lobe. Follow-up to resolution advised
[2016-12-28 07:56] LABS: CHLORIDE 100 mmol/L (98-107)
[2016-12-28 07:57] LABS: POTASSIUM 3.8 mmol/L (3.6-5.2); SODIUM 139 mmol/L (132-148)
[2016-12-28 07:59] LABS: CARBON DIOXIDE 31 mmol/L (22-30); GFR AFRICAN-AMERICAN > 60
[2016-12-28 08:00] LABS: ALB/GLOB RATIO 1.2 (1.0-2.1); ALKALINE PHOSPHATASE 64 U/L (38-126); ALT/SGPT 38 U/L (21-72); AST/SGOT 27 U/L (17-59); BILIRUBIN,TOTAL 0.8 mg/dL (0.2-1.3); BLOOD UREA NITROGEN 21 mg/dL (9-20); CALCIUM 8.4 mg/dl (8.6-10.4); GLUCOSE,RANDOM 85 mg/dL (75-110); MAGNESIUM 2.5 mg/dL (1.6-2.3); PHOSPHOROUS 4.2 mg/dL (2.5-4.5); TOTAL PROTEIN 6.6 g/dL (6.3-8.3)
[2016-12-28 08:06] LABS: BASO # 0.1 K/uL (0.0-0.2); BASO % 0.8 % (0.0-2.0); EOS # 0.5 K/uL (0.0-0.7); EOS % 5.7 % (0.0-4.0); HEMATOCRIT 43.3 % (35.0-51.0); LYMPH # 2.6 K/uL (1.0-4.3); LYMPH % 31.5 % (20.0-40.0); MEAN CELL VOLUME 75.6 fL (80.0-94.0); MEAN CORPUSCULAR HEMOGLOBIN 24.6 pg (27.0-31.0); MEAN CORPUSCULAR HGB CONC 32.6 g/dL (33.0-37.0); MEAN PLATELET VOLUME 10.2 fL (7.2-11.7); MONO % 12.1 % (0.0-10.0); NRBC % 0.1 % (0.0-2.0); RED CELL DISTRIBUTION WIDTH 15.2 % (11.5-14.5); WHITE BLOOD COUNT 8.3 K/uL (4.8-10.8)
--- NOTE | 2016-12-28 09:02 | CP.PCM.PN ---
<Kelly Mojica - Last Filed: 12/28/16 09:18> Subjective - Date & Time of Evaluation Date of Evaluation: 12/28/16 Time of Evaluation: 08:00 - Subjective Subjective: Cardio Progress Note- Dr. Chaudhari Patient seen and examined at bedside this AM. Patient reports he is short of breath this morning. Symptoms worsened last night after his family visited and he took a shower. Patient found it difficult to dress himself after. Patient reports family visit was pleasant and did not upset him. He had chest pain last night, but none today. He also had palpitations last night that have resolved. He was able to get up to go to the bathroom this AM and had SOB. Objective - Vital Signs/Intake and Output Vital Signs (last 24 hours): Temp Pulse Resp BP Pulse Ox 97.2 F L 103 H 18 99/65 L 97 12/28/16 07:40 12/28/16 07:40 12/28/16 07:40 12/28/16 07:40 12/28/16 07:40 Intake and Output: 12/28/16 12/28/16 06:59 18:59 Intake Total 400 Output Total 950 Balance -550 - Medications Medications: Current Medications Aspirin (Aspirin Chewable) 81 mg PO DAILY [facility] Last Admin: 12/27/16 09:05 Dose: 81 mg Calcium Carbonate (Tums) 500 mg PO BID [facility] Last Admin: 12/27/16 18:31 Dose: 500 mg Carvedilol (Coreg) 6.25 mg PO BID [facility] Last Admin: 12/27/16 18:31 Dose: 6.25 mg Enoxaparin Sodium (Lovenox) 40 mg SC DAILY [facility] Last Admin: 12/27/16 09:06 Dose: 40 mg Furosemide (Lasix) 20 mg IVP Q12 [facility] Last Admin: 12/27/16 22:48 Dose: Not Given Cefepime HCl 1 gm/ Dextrose 50 mls @ 100 mls/hr IVPB Q12H [facility] Last Admin: 12/27/16 22:42 Dose: 100 mls/hr Lisinopril (Zestril) 5 mg PO DAILY [facility] Last Admin: 12/27/16 09:05 Dose: 5 mg Pantoprazole Sodium (Protonix Ec Tab) 40 mg PO DAILY [facility] Last Admin: 12/27/16 09:14 Dose: 40 mg Rosuvastatin Calcium (Crestor) 5 mg PO HS [facility] Last Admin: 12/27/16 22:42 Dose: 5 mg Spironolactone (Aldactone) 25 mg PO DAILY [facility] Last Admin: 12/27/16 10:57 Dose: 25 mg - Labs Labs: 12/28/16 07:36 12/28/16 07:36 PT 13.1 SECONDS (9.7-12.2) H 12/25/16 16:00 INR 1.2 12/25/16 16:00 APTT 31 SECONDS (21-34) 12/25/16 16:00 - Constitutional Appears: No Acute Distress, Chronically Ill - Head Exam Head Exam: NORMAL INSPECTION, NORMOCEPHALIC - Eye Exam Eye Exam: EOMI, Normal appearance - ENT Exam ENT Exam: Mucous Membranes Moist - Neck Exam Neck Exam: Full ROM - Respiratory Exam Respiratory Exam: Decreased Breath Sounds. absent: Rales, Rhonchi Additional comments: +coarse breath sounds - Cardiovascular Exam Cardiovascular Exam: Tachycardia, REGULAR RHYTHM, +S1, +S2 - GI/Abdominal Exam GI & Abdominal Exam: Soft. absent: Distended, Tenderness - Extremities Exam Extremities Exam: Full ROM, Normal Inspection - Back Exam Back Exam: NORMAL INSPECTION - Neurological Exam Neurological Exam: Alert, Awake, Oriented x3 - Psychiatric Exam Psychiatric exam: Normal Affect, Normal Mood - Skin Skin Exam: Normal Color, Warm Assessment and Plan (1) New onset of congestive heart failure Assessment & Plan: 41 y/o male with Acute exacerbation of CHF with dyspnea this AM - Echo shows EF of 18% with severely dilated LV, global hypokinesis and moderate MR. - ICD vest for dilated cardiomyopathy with reduced ejection fraction for primary prophylaxis against sudden cardiac - Alcohol cessation and low salt diet - I/O's - Daily weights - Will optimize CHF meds: * Stop ACEi and start Cozaar 50 mg PO daily * Decrease Coreg from 6.25 to 3.125 PO BID * Continue Aldactone 25 mg PO daily * Continue Lasix 20 mg IVP Q12H * Continue Aspirin 81 mg PO daily Patient to follow up in the [facility] upon discharge. Status: Acute (2) Pneumonia Assessment & Plan: Antibiotcs as per primary team. Cough suppressant added. Status: Acute - Assessment and Plan (Free Text) Assessment: Seen and discussed with Dr. Peralta. Evelyn Mojica, PGY 2 <Alycia Peralta A - Last Filed: 12/31/16 08:11> Objective - Vital Signs/Intake and Output Vital Signs (last 24 hours): Temp Pulse Resp BP Pulse Ox 98.0 F 89 20 120/78 96 12/30/16 23:09 12/31/16 04:20 12/30/16 23:09 12/30/16 23:09 12/30/16 23:09 Intake and Output: 12/31/16 12/31/16 06:59 18:59 Intake Total 360 Output Total 1750 Balance -1390 - Medications Medications: Current Medications Aspirin (Aspirin Chewable) 81 mg PO DAILY [facility] Last Admin: 12/30/16 10:59 Dose: 81 mg Calcium Carbonate (Tums) 500 mg PO BID [facility] Last Admin: 12/30/16 18:51 Dose: 500 mg Carvedilol (Coreg) 3.125 mg PO BID [facility] Last Admin: 12/30/16 18:51 Dose: 3.125 mg Enoxaparin Sodium (Lovenox) 40 mg SC DAILY [facility] Last Admin: 12/30/16 10:17 Dose: 40 mg Furosemide (Lasix) 20 mg IVP Q12 [facility] Last Admin: 12/30/16 21:26 Dose: 20 mg Guaifenesin (Robitussin) 200 mg PO Q4H PRN PRN Reason: Cough and congestion Losartan Potassium (Cozaar) 50 mg PO DAILY [facility] Last Admin: 12/30/16 11:00 Dose: 50 mg Magnesium Oxide (Mag-Ox) 400 mg PO DAILY [facility] Last Admin: 12/30/16 10:15 Dose: 400 mg Pantoprazole Sodium (Protonix Ec Tab) 40 mg PO DAILY [facility] Last Admin: 12/30/16 10:15 Dose: 40 mg Promethazine HCl/Dextromethorphan (Phenergan Dm Syrup) 5 ml PO Q6H PRN PRN Reason: Cough Rosuvastatin Calcium (Crestor) 5 mg PO HS [facility] Last Admin: 12/30/16 21:26 Dose: 5 mg Spironolactone (Aldactone) 25 mg PO DAILY [facility] Last Admin: 12/30/16 10:15 Dose: 25 mg - Labs Labs: 12/31/16 07:26 12/31/16 07:26 PT 13.1 SECONDS (9.7-12.2) H 12/25/16 16:00 INR 1.2 12/25/16 16:00 APTT 31 SECONDS (21-34) 12/25/16 16:00 Assessment and Plan (1) Dyspnea Status: Acute (2) New onset of congestive heart failure Status: Acute Attending/Attestation - Attestation I have personally seen and examined this patient.: Yes I have fully participated in the care of the patient.: Yes I have reviewed all pertinent clinical information, including history, physical exam and plan: Yes Notes (Text): optimize chf meds
[2016-12-28] MEDS ORDERED: Promethazine DM 6.25 mg-15 mg/5 ml Syrup PO PRN (09:16)
[2016-12-28] MEDS: Enoxaparin 40 mg Syringe SC SCH (10:57)
[2016-12-28] MEDS: Pantoprazole 40 mg EC Tab PO SCH (10:59)
[2016-12-28] MEDS: Calcium Carbonate 500 mg Chewable Antacid Tab PO SCH ×2 (11:00→17:39)
[2016-12-28] MEDS ORDERED: guaiFENesin 200 mg/10 ml Syrup UD PO PRN (11:56)
--- NOTE | 2016-12-28 12:01 | CP.PCM.PN ---
<Mara Edwards - Last Filed: 12/28/16 11:56> Subjective - Date & Time of Evaluation Date of Evaluation: 12/28/16 Time of Evaluation: 07:00 - Subjective Subjective: Medicine Note for Dr. Hercules, Patient was seen and examined at bedside. Patient reports his breathing is more labored today. He feels fatigued and tired. Patient was seen by Dr. Peralta for LifeVest, pending arrival. Patient still has some SOB, but it has improved since admission. Denied fever, chills, headache, chest pain, abdominal pain, n/v /d/c, or urinary symptoms. Objective - Vital Signs/Intake and Output Vital Signs (last 24 hours): Temp Pulse Resp BP Pulse Ox 97.2 F L 114 H 18 108/77 97 12/28/16 07:40 12/28/16 10:55 12/28/16 07:40 12/28/16 10:57 12/28/16 07:40 Intake and Output: 12/28/16 12/28/16 06:59 18:59 Intake Total 400 Output Total 950 Balance -550 - Medications Medications: Current Medications Aspirin (Aspirin Chewable) 81 mg PO DAILY [facility] Last Admin: 12/28/16 11:33 Dose: 81 mg Calcium Carbonate (Tums) 500 mg PO BID [facility] Last Admin: 12/28/16 11:00 Dose: 500 mg Carvedilol (Coreg) 3.125 mg PO BID [facility] Last Admin: 12/28/16 11:00 Dose: 3.125 mg Enoxaparin Sodium (Lovenox) 40 mg SC DAILY [facility] Last Admin: 12/28/16 10:57 Dose: 40 mg Furosemide (Lasix) 20 mg IVP Q12 [facility] Last Admin: 12/28/16 10:57 Dose: 20 mg Guaifenesin (Robitussin) 200 mg PO Q4H PRN PRN Reason: Cough and congestion Cefepime HCl 1 gm/ Dextrose 50 mls @ 100 mls/hr IVPB Q12H [facility] Last Admin: 12/28/16 11:33 Dose: 100 mls/hr Losartan Potassium (Cozaar) 50 mg PO DAILY [facility] Last Admin: 12/28/16 11:00 Dose: 50 mg Pantoprazole Sodium (Protonix Ec Tab) 40 mg PO DAILY [facility] Last Admin: 12/28/16 10:59 Dose: 40 mg Promethazine HCl/Dextromethorphan (Phenergan Dm Syrup) 5 ml PO Q6H PRN PRN Reason: Cough Rosuvastatin Calcium (Crestor) 5 mg PO HS [facility] Last Admin: 12/27/16 22:42 Dose: 5 mg Spironolactone (Aldactone) 25 mg PO DAILY [facility] Last Admin: 12/28/16 10:59 Dose: 25 mg - Labs Labs: 12/28/16 07:36 12/28/16 07:36 PT 13.1 SECONDS (9.7-12.2) H 12/25/16 16:00 INR 1.2 12/25/16 16:00 APTT 31 SECONDS (21-34) 12/25/16 16:00 - Constitutional Appears: No Acute Distress - Head Exam Head Exam: NORMAL INSPECTION, NORMOCEPHALIC - Respiratory Exam Respiratory Exam: Rales, Rhonchi - Cardiovascular Exam Cardiovascular Exam: Tachycardia - GI/Abdominal Exam GI & Abdominal Exam: Soft, Normal Bowel Sounds. absent: Distended, Tenderness, Diminished Bowel Sounds - Extremities Exam Extremities Exam: Normal Inspection. absent: Pedal Edema, Tenderness - Neurological Exam Neurological Exam: Alert, Awake, Oriented x3 - Skin Skin Exam: Dry, Intact, Normal Color, Warm Assessment and Plan - Assessment and Plan (Free Text) Plan: New Onset CHF * Admit to Telemetry * BNP: 3120 * EKG: Sinus Tachycardia @135 * CXR: RLL infiltrate, cardiomegaly, venous congestion * D-dimer <200 * Lasix 20mg IVP Q12H * ROMIs negative, no changes on EKG * Cardiology consulted- Dr. Hillman- Suggested EP Cardio consult. * ECHO ~18% * Dr. Peralta consulted- Echo shows EF of 18% with severely dilated LV, global hypokinesis and moderate MR. ICD vest for dilated cardiomyopathy with reduced ejection fraction for primary prophylaxis against sudden cardiac . Alcohol cessation and low salt diet. Will optimize CHF meds: * Stop ACEi and start Cozaar 50 mg PO daily * Decrease Coreg from 6.25 to 3.125 PO BID * Continue Aldactone 25 mg PO daily * Continue Lasix 20 mg IVP Q12H * Continue Aspirin 81 mg PO daily Possible PNA * CXR: RLL infiltrate, cardiomegaly, venous congestion * Stopped Azithromycin due to QTc prolongation, stopped rocephin, patient switched to Cefepime * CT Chest w/o Contrast: Multifocal infiltrates primarily affecting all lobes of the right lung and to lesser extent left upper lobe likely infectious/ inflammatory. Mediastinal adenopathy. , on nonspecific. No evidence of axillary or supraclavicular adenopathy. * F/U CXR: Improving infiltrates right upper lobe, right lower lobe. Follow-up to resolution advised HTN * Started on ASA 81mg PO daily, Coreg 3.125mg PO BID, Lisinopril 5mg PO daily HLD * Crestor 5mg PO QHS * Lipid Panel- Triglycerides 157 Hypothyroidism * Patient is noncompliant with medications * TSH, T3, T4 - WNL Prophylactic Measures * GI PPX: Protonix 20mg PO daily * DVT PPX: SCDs, lovenox 40units SC daily * Heart Healthy Diet with 1500mL fluid restriction * Daily Weights * Strict I & Os * Waiting for arrival of LifeVest DW Dr. Hercules, Grace GARZA, PGY-1 <Hugo Hercules H - Last Filed: 12/28/16 15:18> Objective - Vital Signs/Intake and Output Vital Signs (last 24 hours): Temp Pulse Resp BP Pulse Ox 97.2 F L 114 H 18 108/77 97 12/28/16 07:40 12/28/16 10:55 12/28/16 07:40 12/28/16 10:57 12/28/16 07:40 Intake and Output: 12/28/16 12/28/16 06:59 18:59 Intake Total 400 Output Total 950 Balance -550 - Medications Medications: Current Medications Aspirin (Aspirin Chewable) 81 mg PO DAILY [facility] Last Admin: 12/28/16 11:33 Dose: 81 mg Calcium Carbonate (Tums) 500 mg PO BID [facility] Last Admin: 12/28/16 11:00 Dose: 500 mg Carvedilol (Coreg) 3.125 mg PO BID [facility] Last Admin: 12/28/16 11:00 Dose: 3.125 mg Enoxaparin Sodium (Lovenox) 40 mg SC DAILY [facility] Last Admin: 12/28/16 10:57 Dose: 40 mg Furosemide (Lasix) 40 mg IVP ONCE ONE Stop: 12/28/16 18:01 Furosemide (Lasix) 20 mg IVP Q12 [facility] Guaifenesin (Robitussin) 200 mg PO Q4H PRN PRN Reason: Cough and congestion Cefepime HCl 1 gm/ Dextrose 50 mls @ 100 mls/hr IVPB Q12H [facility] Last Admin: 12/28/16 11:33 Dose: 100 mls/hr Losartan Potassium (Cozaar) 50 mg PO DAILY [facility] Last Admin: 12/28/16 11:00 Dose: 50 mg Pantoprazole Sodium (Protonix Ec Tab) 40 mg PO DAILY [facility] Last Admin: 12/28/16 10:59 Dose: 40 mg Promethazine HCl/Dextromethorphan (Phenergan Dm Syrup) 5 ml PO Q6H PRN PRN Reason: Cough Rosuvastatin Calcium (Crestor) 5 mg PO HS [facility] Last Admin: 12/27/16 22:42 Dose: 5 mg Spironolactone (Aldactone) 25 mg PO DAILY [facility] Last Admin: 12/28/16 10:59 Dose: 25 mg - Labs Labs: 12/28/16 07:36 12/28/16 07:36 PT 13.1 SECONDS (9.7-12.2) H 12/25/16 16:00 INR 1.2 12/25/16 16:00 APTT 31 SECONDS (21-34) 12/25/16 16:00 Attending/Attestation - Attestation I have personally seen and examined this patient.: Yes I have fully participated in the care of the patient.: Yes I have reviewed all pertinent clinical information, including history, physical exam and plan: Yes Notes (Text): 12/28/16 15:17 Medical attending: Patient was seen and examined by me, agrees the above note by director medical surgical. Today the patient reported feeling more tired than usual. He explains that yesterday afternoon yesterday night he was doing okay but he tried to get up and walk around and after that he just felt exhausted this morning At this time were still pending on the LifeVest. As mentioned before we've had a long discussion with the patient with regards to medications LifeVest. Yesterday we increased his Coreg as well as place the patient on Aldactone he's ready on a/ARB medication Thank you very much, Hugo Hercules
[2016-12-29 06:16] LABS: BASO # 0.1 K/uL (0.0-0.2); BASO % 0.8 % (0.0-2.0); EOS # 0.5 K/uL (0.0-0.7); EOS % 5.3 % (0.0-4.0); HEMATOCRIT 43.9 % (35.0-51.0); LYMPH # 2.1 K/uL (1.0-4.3); LYMPH % 24.3 % (20.0-40.0); MEAN CELL VOLUME 75.9 fL (80.0-94.0); MEAN CORPUSCULAR HEMOGLOBIN 24.7 pg (27.0-31.0); MEAN CORPUSCULAR HGB CONC 32.5 g/dL (33.0-37.0); MEAN PLATELET VOLUME 9.7 fL (7.2-11.7); MONO % 11.4 % (0.0-10.0); NRBC % 0.5 % (0.0-2.0); RED CELL DISTRIBUTION WIDTH 14.9 % (11.5-14.5); WHITE BLOOD COUNT 8.5 K/uL (4.8-10.8)
[2016-12-29 06:24] LABS: CHLORIDE 97 mmol/L (98-107); POTASSIUM 4.2 mmol/L (3.6-5.2); SODIUM 137 mmol/L (132-148)
[2016-12-29 06:26] LABS: ALB/GLOB RATIO 1.1 (1.0-2.1); ALKALINE PHOSPHATASE 63 U/L (38-126); AST/SGOT 27 U/L (17-59); BILIRUBIN,TOTAL 0.9 mg/dL (0.2-1.3); CARBON DIOXIDE 31 mmol/L (22-30); GFR AFRICAN-AMERICAN > 60; TOTAL PROTEIN 6.7 g/dL (6.3-8.3)
[2016-12-29 06:27] LABS: ALT/SGPT 34 U/L (21-72); BLOOD UREA NITROGEN 22 mg/dL (9-20); CALCIUM 8.7 mg/dl (8.6-10.4); GLUCOSE,RANDOM 92 mg/dL (75-110); PHOSPHOROUS 4.2 mg/dL (2.5-4.5)
[2016-12-29 06:28] LABS: MAGNESIUM 2.3 mg/dL (1.6-2.3)
--- NOTE | 2016-12-29 08:55 | CP.PCM.PN ---
<Francis Pollack - Last Filed: 12/29/16 17:21> Subjective - Date & Time of Evaluation Date of Evaluation: 12/29/16 Time of Evaluation: 07:15 - Subjective Subjective: EP-Cardio Progress Note Dr. Peralta Patient seen and examined this AM, OOB to chair at time of exam. No acute distress, no overnight events. Patient reports improved shortness of breath this AM, and was able to sleep overnight (at elevated angle in bed) without needing supplemental O2. Denies chest pain, palpitations, dizziness, or shortness of breath with slow ambulation, but admits to some shortness of breath with exertion/rapid movements. All remaining ROS negative. Objective - Vital Signs/Intake and Output Vital Signs (last 24 hours): Temp Pulse Resp BP Pulse Ox 97.3 F L 108 H 20 110/79 96 12/29/16 08:10 12/29/16 08:10 12/29/16 08:10 12/29/16 08:10 12/29/16 08:10 Intake and Output: 12/29/16 12/29/16 06:59 18:59 Intake Total 350 Output Total 1100 Balance -750 - Medications Medications: Current Medications Aspirin (Aspirin Chewable) 81 mg PO DAILY [facility] Last Admin: 12/28/16 11:33 Dose: 81 mg Calcium Carbonate (Tums) 500 mg PO BID [facility] Last Admin: 12/28/16 17:39 Dose: 500 mg Carvedilol (Coreg) 3.125 mg PO BID [facility] Last Admin: 12/28/16 17:39 Dose: 3.125 mg Enoxaparin Sodium (Lovenox) 40 mg SC DAILY [facility] Last Admin: 12/28/16 10:57 Dose: 40 mg Furosemide (Lasix) 20 mg IVP Q12 [facility] Last Admin: 12/28/16 21:50 Dose: 20 mg Guaifenesin (Robitussin) 200 mg PO Q4H PRN PRN Reason: Cough and congestion Cefepime HCl 1 gm/ Dextrose 50 mls @ 100 mls/hr IVPB Q12H [facility] Last Admin: 12/28/16 22:29 Dose: 100 mls/hr Losartan Potassium (Cozaar) 50 mg PO DAILY [facility] Last Admin: 12/28/16 11:00 Dose: 50 mg Pantoprazole Sodium (Protonix Ec Tab) 40 mg PO DAILY [facility] Last Admin: 12/28/16 10:59 Dose: 40 mg Promethazine HCl/Dextromethorphan (Phenergan Dm Syrup) 5 ml PO Q6H PRN PRN Reason: Cough Rosuvastatin Calcium (Crestor) 5 mg PO HS [facility] Last Admin: 12/28/16 21:50 Dose: 5 mg Spironolactone (Aldactone) 25 mg PO DAILY [facility] Last Admin: 12/28/16 10:59 Dose: 25 mg - Labs Labs: 12/29/16 06:05 12/29/16 06:05 PT 13.1 SECONDS (9.7-12.2) H 12/25/16 16:00 INR 1.2 12/25/16 16:00 APTT 31 SECONDS (21-34) 12/25/16 16:00 - Constitutional Appears: Well, Non-toxic, No Acute Distress - Head Exam Head Exam: ATRAUMATIC, NORMAL INSPECTION, NORMOCEPHALIC - Eye Exam Eye Exam: EOMI, Normal appearance. absent: Conjunctival injection, Scleral icterus Pupil Exam: absent: Irregular, Unequal - ENT Exam ENT Exam: Mucous Membranes Moist - Neck Exam Neck Exam: Full ROM - Respiratory Exam Respiratory Exam: Decreased Breath Sounds (mildly decreased breath sounds all carrillo), Rales (mild rales at bilateral bases), Wheezes (faint end-expiratory wheezes), NORMAL BREATHING PATTERN. absent: Accessory Muscle Use, Chest Wall Tenderness, Prolonged Expiratory Phase, Respiratory Distress, Stridor - Cardiovascular Exam Cardiovascular Exam: REGULAR RHYTHM, RRR, +S1, +S2, Murmur (faint systolic murmur, most prominent along left sternal border). absent: Bradycardia, Tachycardia, Irregular Rhythm, +S4 - GI/Abdominal Exam GI & Abdominal Exam: Soft, Normal Bowel Sounds. absent: Distended, Firm, Rigid , Tenderness, Diminished Bowel Sounds, Hyperactive Bowel Sounds, Hypoactive Bowel Sounds - Extremities Exam Extremities Exam: Full ROM, Normal Capillary Refill, Normal Inspection. absent : Calf Tenderness, Joint Swelling, Pedal Edema, Tenderness - Back Exam Back Exam: NORMAL INSPECTION. absent: rash noted - Neurological Exam Neurological Exam: Alert, Awake, Oriented x3 - Psychiatric Exam Psychiatric exam: Normal Affect, Normal Mood - Skin Skin Exam: Dry, Intact, Normal Color, Warm Assessment and Plan (1) New onset of congestive heart failure Assessment & Plan: Echo 12/25/16: LVEF 18%, normal LV wall thickness, severely impaired LV and RV systolic fxn, global LV hypokinesis, severely dilated LV, moderate MR; no LV thrombus noted EKG 12/25/16: Sinus tachycardia at 135, Prolonged QTc at 482, Nonspecific T wave abnormality, Abnormal ECG EKG 12/26/16: Sinus tachycardia at 117, Prolonged QTc at 504, Nonspecific T wave abnormality, Abnormal ECG EKG 12/28/16: Sinus tachycardia at 113, Prolonged QTc at 523, Possible Left atrial enlargement, Nonspecific T wave abnormality, Abnormal ECG EKG 12/29/16: Sinus tachycardia at 103, Prolonged QTc at 526, Septal infarct (age undetermined), Abnormal ECG -New onset CHF 2/2 resumed alcohol abuse/holiday heart/alcoholic cardiomyopathy vs HTN (off HTN for some time prior to this admission) -Life vest ordered due to risk of sudden cardiac in CHF with low EF; life- vest received, instructions provided to patient by LifeVest rep -If no improvement in EF (goal is >35%) with medication management and alcohol cessation, may require ICD, will reassess and f/u as outpt -Alcohol cessation and low salt diet -Continue aggressive medical management: Cozaar 50 mg PO daily, Coreg 3.125 PO BID, Aldactone 25 mg PO daily, Lasix 20 mg IVP Q12H, Aspirin 81 mg PO daily -Patient to follow up in the [facility] upon discharge. Status: Acute (2) Prolonged Q-T interval on ECG Assessment & Plan: Echo 12/25/16: LVEF 18%, normal LV wall thickness, severely impaired LV and RV systolic fxn, global LV hypokinesis, severely dilated LV, moderate MR; no LV thrombus noted EKG 12/25/16: Sinus tachycardia at 135, Prolonged QTc at 482, Nonspecific T wave abnormality, Abnormal ECG EKG 12/26/16: Sinus tachycardia at 117, Prolonged QTc at 504, Nonspecific T wave abnormality, Abnormal ECG EKG 12/28/16: Sinus tachycardia at 113, Prolonged QTc at 523, Possible Left atrial enlargement, Nonspecific T wave abnormality, Abnormal ECG EKG 12/29/16: Sinus tachycardia at 103, Prolonged QTc at 526, Septal infarct (age undetermined), Abnormal ECG -Likely 2/2 new onset CHF with low EF (18%) vs hx hypothyroidism with reported medication non-compliance -TSH high normal on admission, Free T4 low normal on admission; new thyroid panel ordered, will f/u, if hypothyroid then would consider starting on synthroid -Avoid all QT prolonging medications -Continue CHF medication management -1g IV mag x2 ordered, will repeat EKG after magnesium given and reassess Status: Acute - Assessment and Plan (Free Text) Assessment: Case discussed with Dr. Peralta. <Alycia Peralta - Last Filed: 12/31/16 08:10> Objective - Vital Signs/Intake and Output Vital Signs (last 24 hours): Temp Pulse Resp BP Pulse Ox 98.0 F 89 20 120/78 96 12/30/16 23:09 12/31/16 04:20 12/30/16 23:09 12/30/16 23:09 12/30/16 23:09 Intake and Output: 12/31/16 12/31/16 06:59 18:59 Intake Total 360 Output Total 1750 Balance -1390 - Medications Medications: Current Medications Aspirin (Aspirin Chewable) 81 mg PO DAILY [facility] Last Admin: 12/30/16 10:59 Dose: 81 mg Calcium Carbonate (Tums) 500 mg PO BID [facility] Last Admin: 12/30/16 18:51 Dose: 500 mg Carvedilol (Coreg) 3.125 mg PO BID [facility] Last Admin: 12/30/16 18:51 Dose: 3.125 mg Enoxaparin Sodium (Lovenox) 40 mg SC DAILY [facility] Last Admin: 12/30/16 10:17 Dose: 40 mg Furosemide (Lasix) 20 mg IVP Q12 [facility] Last Admin: 12/30/16 21:26 Dose: 20 mg Guaifenesin (Robitussin) 200 mg PO Q4H PRN PRN Reason: Cough and congestion Losartan Potassium (Cozaar) 50 mg PO DAILY [facility] Last Admin: 12/30/16 11:00 Dose: 50 mg Magnesium Oxide (Mag-Ox) 400 mg PO DAILY [facility] Last Admin: 12/30/16 10:15 Dose: 400 mg Pantoprazole Sodium (Protonix Ec Tab) 40 mg PO DAILY [facility] Last Admin: 12/30/16 10:15 Dose: 40 mg Promethazine HCl/Dextromethorphan (Phenergan Dm Syrup) 5 ml PO Q6H PRN PRN Reason: Cough Rosuvastatin Calcium (Crestor) 5 mg PO HS [facility] Last Admin: 12/30/16 21:26 Dose: 5 mg Spironolactone (Aldactone) 25 mg PO DAILY [facility] Last Admin: 12/30/16 10:15 Dose: 25 mg - Labs Labs: 12/31/16 07:26 12/31/16 07:26 PT 13.1 SECONDS (9.7-12.2) H 12/25/16 16:00 INR 1.2 12/25/16 16:00 APTT 31 SECONDS (21-34) 12/25/16 16:00 Assessment and Plan (1) Dyspnea Status: Acute (2) New onset of congestive heart failure Status: Acute Attending/Attestation - Attestation I have personally seen and examined this patient.: Yes I have fully participated in the care of the patient.: Yes I have reviewed all pertinent clinical information, including history, physical exam and plan: Yes Notes (Text): 12/31/16 08:09 Pt for eps icd evaluation
[2016-12-29] MEDS: Magnesium Sulfate 1 gm in D5W 1 GM/100 ML BAG IVPB SCH ×2 (10:05→10:43)
[2016-12-29] MEDS: Enoxaparin 40 mg Syringe SC SCH (10:11)
[2016-12-29] MEDS: Calcium Carbonate 500 mg Chewable Antacid Tab PO SCH ×2 (10:12→17:04)
[2016-12-29] MEDS: Pantoprazole 40 mg EC Tab PO SCH (10:12)
--- NOTE | 2016-12-29 11:34 | CARD ---
APPROVED REPORT EKG Measurement Heart [id number] <Conclusion> Sinus tachycardia Septal infarct, age undetermined Prolonged QT, lateral T wave inversion consider ischemia Abnormal ECG
[2016-12-29] MEDS ORDERED: Magnesium Sulfate 1 gm in D5W 1 GM/100 ML BAG IVPB SCH (13:00)
--- NOTE | 2016-12-29 13:11 | CP.PCM.PN ---
<Mara Edwards - Last Filed: 12/29/16 13:05> Subjective - Date & Time of Evaluation Date of Evaluation: 12/29/16 Time of Evaluation: 07:00 - Subjective Subjective: Medicine Note for Dr. Hercules, Patient was seen and examined at bedside. Patient reports he feels much better today compared to day of admission. He slept well last night, for the first time in a few weeks. Patient ambulated this morning and felt a little fatigue. Denied fever, chills, headache, chest pain, abdominal pain, n/v/d/c, or urinary symptoms. Patient is going to be kept here for another day, due to QT prolongation. Patient is being administered IV mag and will have repeat EKGs, and labs. Possible DC tomorrow pending EKG. Objective - Vital Signs/Intake and Output Vital Signs (last 24 hours): Temp Pulse Resp BP Pulse Ox 97.3 F L 103 H 20 102/74 96 12/29/16 08:10 12/29/16 11:35 12/29/16 11:35 12/29/16 11:35 12/29/16 11:35 Intake and Output: 12/29/16 12/29/16 06:59 18:59 Intake Total 350 Output Total 1100 Balance -750 - Medications Medications: Current Medications Aspirin (Aspirin Chewable) 81 mg PO DAILY [facility] Last Admin: 12/29/16 10:12 Dose: 81 mg Calcium Carbonate (Tums) 500 mg PO BID [facility] Last Admin: 12/29/16 10:12 Dose: 500 mg Carvedilol (Coreg) 3.125 mg PO BID [facility] Last Admin: 12/29/16 10:12 Dose: 3.125 mg Enoxaparin Sodium (Lovenox) 40 mg SC DAILY [facility] Last Admin: 12/29/16 10:11 Dose: 40 mg Furosemide (Lasix) 20 mg IVP Q12 [facility] Last Admin: 12/29/16 10:06 Dose: 20 mg Guaifenesin (Robitussin) 200 mg PO Q4H PRN PRN Reason: Cough and congestion Cefepime HCl 1 gm/ Dextrose 50 mls @ 100 mls/hr IVPB Q12H [facility] Last Admin: 12/29/16 11:29 Dose: 100 mls/hr Losartan Potassium (Cozaar) 50 mg PO DAILY [facility] Last Admin: 12/29/16 10:47 Dose: 50 mg Magnesium Oxide (Mag-Ox) 400 mg PO DAILY [facility] Pantoprazole Sodium (Protonix Ec Tab) 40 mg PO DAILY [facility] Last Admin: 12/29/16 10:12 Dose: 40 mg Promethazine HCl/Dextromethorphan (Phenergan Dm Syrup) 5 ml PO Q6H PRN PRN Reason: Cough Rosuvastatin Calcium (Crestor) 5 mg PO HS [facility] Last Admin: 12/28/16 21:50 Dose: 5 mg Spironolactone (Aldactone) 25 mg PO DAILY [facility] Last Admin: 12/29/16 10:12 Dose: 25 mg - Labs Labs: 12/29/16 06:05 12/29/16 06:05 PT 13.1 SECONDS (9.7-12.2) H 12/25/16 16:00 INR 1.2 12/25/16 16:00 APTT 31 SECONDS (21-34) 12/25/16 16:00 - Constitutional Appears: No Acute Distress - Head Exam Head Exam: NORMAL INSPECTION, NORMOCEPHALIC - ENT Exam ENT Exam: Mucous Membranes Moist - Respiratory Exam Respiratory Exam: NORMAL BREATHING PATTERN - Cardiovascular Exam Cardiovascular Exam: Tachycardia - GI/Abdominal Exam GI & Abdominal Exam: Soft, Normal Bowel Sounds. absent: Distended, Tenderness - Extremities Exam Extremities Exam: Normal Inspection. absent: Pedal Edema, Tenderness - Neurological Exam Neurological Exam: Alert, Awake, Oriented x3 - Skin Skin Exam: Dry, Intact, Normal Color, Warm Assessment and Plan - Assessment and Plan (Free Text) Plan: New Onset CHF * Admit to Telemetry * BNP: 3120 * EKG: Sinus Tachycardia @135 * CXR: RLL infiltrate, cardiomegaly, venous congestion * D-dimer <200 * Lasix 20mg IVP Q12H * ROMIs negative, no changes on EKG * Cardiology consulted- Dr. Hillman- Suggested EP Cardio consult. * ECHO ~18% * Dr. Peralta consulted- Echo shows EF of 18% with severely dilated LV, global hypokinesis and moderate MR. ICD vest for dilated cardiomyopathy with reduced ejection fraction for primary prophylaxis against sudden cardiac . Alcohol cessation and low salt diet. Will optimize CHF meds: * Stop ACEi and start Cozaar 50 mg PO daily * Decrease Coreg from 6.25 to 3.125 PO BID * Continue Aldactone 25 mg PO daily * Continue Lasix 20 mg IVP Q12H * Continue Aspirin 81 mg PO daily Prolonged Q-T interval on ECG * Echo 12/25/16: LVEF 18%, normal LV wall thickness, severely impaired LV and RV systolic fxn, global LV hypokinesis, severely dilated LV, moderate MR; no LV thrombus noted * EKG 12/25/16: Sinus tachycardia at 135, Prolonged QTc at 482, Nonspecific T wave abnormality, Abnormal ECG * EKG 12/26/16: Sinus tachycardia at 117, Prolonged QTc at 504, Nonspecific T wave abnormality, Abnormal ECG * EKG 12/28/16: Sinus tachycardia at 113, Prolonged QTc at 523, Possible Left atrial enlargement, Nonspecific T wave abnormality, Abnormal ECG * EKG 12/29/16: Sinus tachycardia at 103, Prolonged QTc at 526, Septal infarct ( age undetermined), Abnormal ECG * Likely 2/2 new onset CHF with low EF (18%) vs hx hypothyroidism with reported medication non-compliance * TSH high normal on admission, Free T4 low normal on admission; new thyroid panel ordered, will f/u, if hypothyroid then would consider starting on synthroid * Avoid all QT prolonging medications * Continue CHF medication management * 1g IV mag x2 ordered, will repeat EKG after magnesium given and reassess Possible PNA * CXR: RLL infiltrate, cardiomegaly, venous congestion * Stopped Azithromycin due to QTc prolongation, stopped rocephin, patient switched to Cefepime (12/27) * CT Chest w/o Contrast: Multifocal infiltrates primarily affecting all lobes of the right lung and to lesser extent left upper lobe likely infectious/ inflammatory. Mediastinal adenopathy. , on nonspecific. No evidence of axillary or supraclavicular adenopathy. * Repeat CXR: Improving infiltrates right upper lobe, right lower lobe. Follow- up to resolution advised HTN * Started on ASA 81mg PO daily, Coreg 3.125mg PO BID, Cozaar 50mg PO daily HLD * Crestor 5mg PO QHS * Lipid Panel- Triglycerides 157 Hypothyroidism * Patient is noncompliant with medications * TSH, T3, T4 - WNL Prophylactic Measures * GI PPX: Protonix 20mg PO daily * DVT PPX: SCDs, lovenox 40units SC daily * Heart Healthy Diet with 1500mL fluid restriction * Daily Weights * Strict I & Os * Patient received life vest DW Dr. Hercules, Grace GARZA, PGY-1 <Hugo Hercules H - Last Filed: 12/29/16 15:27> Objective - Vital Signs/Intake and Output Vital Signs (last 24 hours): Temp Pulse Resp BP Pulse Ox 97.3 F L 105 H 20 102/74 96 12/29/16 08:10 12/29/16 12:00 12/29/16 11:35 12/29/16 11:35 12/29/16 11:35 Intake and Output: 12/29/16 12/29/16 06:59 18:59 Intake Total 350 Output Total 1100 Balance -750 - Medications Medications: Current Medications Aspirin (Aspirin Chewable) 81 mg PO DAILY [facility] Last Admin: 12/29/16 10:12 Dose: 81 mg Calcium Carbonate (Tums) 500 mg PO BID [facility] Last Admin: 12/29/16 10:12 Dose: 500 mg Carvedilol (Coreg) 3.125 mg PO BID [facility] Last Admin: 12/29/16 10:12 Dose: 3.125 mg Enoxaparin Sodium (Lovenox) 40 mg SC DAILY [facility] Last Admin: 12/29/16 10:11 Dose: 40 mg Furosemide (Lasix) 20 mg IVP Q12 [facility] Last Admin: 12/29/16 10:06 Dose: 20 mg Guaifenesin (Robitussin) 200 mg PO Q4H PRN PRN Reason: Cough and congestion Cefepime HCl 1 gm/ Dextrose 50 mls @ 100 mls/hr IVPB Q12H [facility] Last Admin: 12/29/16 11:29 Dose: 100 mls/hr Losartan Potassium (Cozaar) 50 mg PO DAILY [facility] Last Admin: 12/29/16 10:47 Dose: 50 mg Magnesium Oxide (Mag-Ox) 400 mg PO DAILY [facility] Pantoprazole Sodium (Protonix Ec Tab) 40 mg PO DAILY [facility] Last Admin: 12/29/16 10:12 Dose: 40 mg Promethazine HCl/Dextromethorphan (Phenergan Dm Syrup) 5 ml PO Q6H PRN PRN Reason: Cough Rosuvastatin Calcium (Crestor) 5 mg PO HS [facility] Last Admin: 12/28/16 21:50 Dose: 5 mg Spironolactone (Aldactone) 25 mg PO DAILY [facility] Last Admin: 12/29/16 10:12 Dose: 25 mg - Labs Labs: 12/29/16 06:05 12/29/16 06:05 PT 13.1 SECONDS (9.7-12.2) H 12/25/16 16:00 INR 1.2 12/25/16 16:00 APTT 31 SECONDS (21-34) 12/25/16 16:00 Attending/Attestation - Attestation I have personally seen and examined this patient.: Yes I have fully participated in the care of the patient.: Yes I have reviewed all pertinent clinical information, including history, physical exam and plan: Yes Notes (Text): Medical Attending: Patient was seen and examined by me. Agree with the above note by the resident. The patient was feeling well, he reports sleeping ok. He now has the life vest. We intially had planned on DC the patient today however cardiology wants patient to stay another day as the QTC interval is still long thank you Hugo Hercules
[2016-12-29 15:18] LABS: FT3 4.6 pg/mL (2.77-5.27); T4 10.7 ug/dL (5.5-11.0)
[2016-12-29 15:31] LABS: THYROID STIMULATING HORMONE 3.63 mIU/L (0.46-4.68)
--- NOTE | 2016-12-29 19:26 | CARD ---
APPROVED REPORT EKG Measurement Heart [id number] [id number] [id number] <Conclusion> Sinus tachycardia Possible Left atrial enlargement Nonspecific T wave abnormality Prolonged QT Abnormal ECG
--- NOTE | 2016-12-29 19:27 | CARD ---
APPROVED REPORT EKG Measurement Heart [id number] [id number] [id number] <Conclusion> Sinus tachycardia Nonspecific T wave abnormality Abnormal ECG
[2016-12-30 06:27] LABS: HEMATOCRIT 45.3 % (35.0-51.0); MEAN CELL VOLUME 75.6 fL (80.0-94.0); MEAN CORPUSCULAR HEMOGLOBIN 24.7 pg (27.0-31.0); MEAN CORPUSCULAR HGB CONC 32.6 g/dL (33.0-37.0); MEAN PLATELET VOLUME 9.6 fL (7.2-11.7); WHITE BLOOD COUNT 8.9 K/uL (4.8-10.8)
[2016-12-30 06:53] LABS: CHLORIDE 97 mmol/L (98-107); POTASSIUM 3.9 mmol/L (3.6-5.2); SODIUM 136 mmol/L (132-148)
[2016-12-30 06:55] LABS: GFR AFRICAN-AMERICAN > 60
[2016-12-30 06:56] LABS: ALB/GLOB RATIO 1.3 (1.0-2.1); ALKALINE PHOSPHATASE 68 U/L (38-126); ALT/SGPT 42 U/L (21-72); AST/SGOT 32 U/L (17-59); BILIRUBIN,TOTAL 0.8 mg/dL (0.2-1.3); BLOOD UREA NITROGEN 21 mg/dL (9-20); CALCIUM 8.5 mg/dl (8.6-10.4); CARBON DIOXIDE 28 mmol/L (22-30); GLUCOSE,RANDOM 91 mg/dL (75-110); TOTAL PROTEIN 6.8 g/dL (6.3-8.3)
--- NOTE | 2016-12-30 07:02 | CP.PCM.PN ---
Subjective - Date & Time of Evaluation Date of Evaluation: 12/30/16 Time of Evaluation: 07:01 - Subjective Subjective: Pt advised for ep possible ICD Objective - Vital Signs/Intake and Output Vital Signs (last 24 hours): Temp Pulse Resp BP Pulse Ox 97.7 F 98 H 20 108/78 97 12/29/16 23:10 12/30/16 05:43 12/30/16 05:43 12/30/16 05:43 12/30/16 05:43 Intake and Output: 12/30/16 12/30/16 06:59 18:59 Intake Total 270 Output Total 1925 Balance -1655 - Medications Medications: Current Medications Aspirin (Aspirin Chewable) 81 mg PO DAILY [facility] Last Admin: 12/29/16 10:12 Dose: 81 mg Calcium Carbonate (Tums) 500 mg PO BID [facility] Last Admin: 12/29/16 17:04 Dose: 500 mg Carvedilol (Coreg) 3.125 mg PO BID [facility] Last Admin: 12/29/16 17:04 Dose: 3.125 mg Enoxaparin Sodium (Lovenox) 40 mg SC DAILY [facility] Last Admin: 12/29/16 10:11 Dose: 40 mg Furosemide (Lasix) 20 mg IVP Q12 [facility] Last Admin: 12/29/16 22:28 Dose: 20 mg Guaifenesin (Robitussin) 200 mg PO Q4H PRN PRN Reason: Cough and congestion Cefepime HCl 1 gm/ Dextrose 50 mls @ 100 mls/hr IVPB Q12H [facility] Last Admin: 12/29/16 22:29 Dose: 100 mls/hr Losartan Potassium (Cozaar) 50 mg PO DAILY [facility] Last Admin: 12/29/16 10:47 Dose: 50 mg Magnesium Oxide (Mag-Ox) 400 mg PO DAILY [facility] Pantoprazole Sodium (Protonix Ec Tab) 40 mg PO DAILY [facility] Last Admin: 12/29/16 10:12 Dose: 40 mg Promethazine HCl/Dextromethorphan (Phenergan Dm Syrup) 5 ml PO Q6H PRN PRN Reason: Cough Rosuvastatin Calcium (Crestor) 5 mg PO HS [facility] Last Admin: 12/29/16 22:28 Dose: 5 mg Spironolactone (Aldactone) 25 mg PO DAILY [facility] Last Admin: 12/29/16 10:12 Dose: 25 mg - Labs Labs: 12/30/16 06:18 12/29/16 06:05 PT 13.1 SECONDS (9.7-12.2) H 12/25/16 16:00 INR 1.2 12/25/16 16:00 APTT 31 SECONDS (21-34) 12/25/16 16:00 - Constitutional Appears: Well - Head Exam Head Exam: NORMOCEPHALIC - Eye Exam Eye Exam: Normal appearance - ENT Exam ENT Exam: Mucous Membranes Moist - Respiratory Exam Respiratory Exam: Clear to Ausculation Bilateral, NORMAL BREATHING PATTERN - Cardiovascular Exam Cardiovascular Exam: +S1, +S2 - GI/Abdominal Exam GI & Abdominal Exam: Normal Bowel Sounds - Exam External exam: absent: Ecchymosis - Extremities Exam Extremities Exam: absent: Calf Tenderness - Neurological Exam Neurological Exam: Awake - Psychiatric Exam Psychiatric exam: Normal Affect, Normal Mood - Skin Skin Exam: Warm Assessment and Plan (1) Dyspnea Assessment & Plan: Pt will need eps possible ICD Status: Acute (2) New onset of congestive heart failure Status: Acute
--- NOTE | 2016-12-30 09:35 | CP.PCM.PN ---
Subjective - Date & Time of Evaluation Date of Evaluation: 12/30/16 Time of Evaluation: 09:00 - Subjective Subjective: Patient was seen and examined by me. He was walking on his own in the hallway. He has the life vest now, however the QTC is still very long. 520 Because of this we have not discharged the patient and I have been told the patient is probably going to be moved to [facility] for further intervention On exam today patient was walking with me in the hallway. He did not need assistance. He walked slowly but did not report chest pain or palpitations. On review of the telemetry HR in low 100s. Objective - Vital Signs/Intake and Output Vital Signs (last 24 hours): Temp Pulse Resp BP Pulse Ox 97.5 F L 106 H 20 111/79 97 12/30/16 07:25 12/30/16 07:25 12/30/16 07:25 12/30/16 07:25 12/30/16 07:25 Intake and Output: 12/30/16 12/30/16 06:59 18:59 Intake Total 270 Output Total 1925 Balance -1655 - Medications Medications: Current Medications Aspirin (Aspirin Chewable) 81 mg PO DAILY [facility] Last Admin: 12/29/16 10:12 Dose: 81 mg Calcium Carbonate (Tums) 500 mg PO BID [facility] Last Admin: 12/29/16 17:04 Dose: 500 mg Carvedilol (Coreg) 3.125 mg PO BID [facility] Last Admin: 12/29/16 17:04 Dose: 3.125 mg Enoxaparin Sodium (Lovenox) 40 mg SC DAILY [facility] Last Admin: 12/29/16 10:11 Dose: 40 mg Furosemide (Lasix) 20 mg IVP Q12 [facility] Last Admin: 12/29/16 22:28 Dose: 20 mg Guaifenesin (Robitussin) 200 mg PO Q4H PRN PRN Reason: Cough and congestion Cefepime HCl 1 gm/ Dextrose 50 mls @ 100 mls/hr IVPB Q12H [facility] Last Admin: 12/29/16 22:29 Dose: 100 mls/hr Losartan Potassium (Cozaar) 50 mg PO DAILY [facility] Last Admin: 12/29/16 10:47 Dose: 50 mg Magnesium Oxide (Mag-Ox) 400 mg PO DAILY [facility] Pantoprazole Sodium (Protonix Ec Tab) 40 mg PO DAILY [facility] Last Admin: 12/29/16 10:12 Dose: 40 mg Promethazine HCl/Dextromethorphan (Phenergan Dm Syrup) 5 ml PO Q6H PRN PRN Reason: Cough Rosuvastatin Calcium (Crestor) 5 mg PO HS [facility] Last Admin: 12/29/16 22:28 Dose: 5 mg Spironolactone (Aldactone) 25 mg PO DAILY [facility] Last Admin: 12/29/16 10:12 Dose: 25 mg - Labs Labs: 12/30/16 06:18 12/30/16 06:18 PT 13.1 SECONDS (9.7-12.2) H 12/25/16 16:00 INR 1.2 12/25/16 16:00 APTT 31 SECONDS (21-34) 12/25/16 16:00 - Constitutional Appears: Well, Non-toxic, No Acute Distress - Head Exam Head Exam: NORMAL INSPECTION, NORMOCEPHALIC - Eye Exam Eye Exam: EOMI - ENT Exam ENT Exam: Mucous Membranes Moist - Respiratory Exam Respiratory Exam: Clear to Ausculation Bilateral, NORMAL BREATHING PATTERN - Cardiovascular Exam Cardiovascular Exam: REGULAR RHYTHM - GI/Abdominal Exam GI & Abdominal Exam: Soft, Normal Bowel Sounds - Neurological Exam Neurological Exam: Alert, Awake, Oriented x3 Neuro motor strength exam: Left Upper Extremity: 5, Right Upper Extremity: 5, Left Lower Extremity: 5, Right Lower Extremity: 5 - Psychiatric Exam Psychiatric exam: Normal Affect, Normal Mood - Skin Skin Exam: Normal Color, Warm Assessment and Plan - Assessment and Plan (Free Text) Assessment: New Onset CHF 12/30: Patient now has lfe vest but the QT interval remains very prolonged. He remains under monitoring, per my understanding there are plans for potential transfer to [facility] for further interventions. * Admit to Telemetry * BNP: 3120 * EKG: Sinus Tachycardia @135 * CXR: RLL infiltrate, cardiomegaly, venous congestion * D-dimer <200 * Lasix 20mg IVP Q12H * ROMIs negative, no changes on EKG * Cardiology consulted- Dr. Hillman- Suggested EP Cardio consult. * ECHO ~18% * Dr. Peralta consulted- Echo shows EF of 18% with severely dilated LV, global hypokinesis and moderate MR. ICD vest for dilated cardiomyopathy with reduced ejection fraction for primary prophylaxis against sudden cardiac . Alcohol cessation and low salt diet. Will optimize CHF meds: * Stop ACEi and start Cozaar 50 mg PO daily * Decrease Coreg from 6.25 to 3.125 PO BID * Continue Aldactone 25 mg PO daily * Continue Lasix 20 mg IVP Q12H * Continue Aspirin 81 mg PO daily Prolonged Q-T interval on ECG 12/30: As mentioned above pending further interventions * Echo 12/25/16: LVEF 18%, normal LV wall thickness, severely impaired LV and RV systolic fxn, global LV hypokinesis, severely dilated LV, moderate MR; no LV thrombus noted * EKG 12/25/16: Sinus tachycardia at 135, Prolonged QTc at 482, Nonspecific T wave abnormality, Abnormal ECG * EKG 12/26/16: Sinus tachycardia at 117, Prolonged QTc at 504, Nonspecific T wave abnormality, Abnormal ECG * EKG 12/28/16: Sinus tachycardia at 113, Prolonged QTc at 523, Possible Left atrial enlargement, Nonspecific T wave abnormality, Abnormal ECG * EKG 12/29/16: Sinus tachycardia at 103, Prolonged QTc at 526, Septal infarct ( age undetermined), Abnormal ECG * Likely 2/2 new onset CHF with low EF (18%) vs hx hypothyroidism with reported medication non-compliance * TSH high normal on admission, Free T4 low normal on admission; new thyroid panel ordered, will f/u, if hypothyroid then would consider starting on synthroid * Avoid all QT prolonging medications * Continue CHF medication management * 1g IV mag x2 ordered, will repeat EKG after magnesium given and reassess Possible PNA 12/30: WBC is stable, no fevers. The cultures have been negative. Will stop cefepime today and monitor. * CXR: RLL infiltrate, cardiomegaly, venous congestion * Stopped Azithromycin due to QTc prolongation, stopped rocephin, patient switched to Cefepime (12/27) * CT Chest w/o Contrast: Multifocal infiltrates primarily affecting all lobes of the right lung and to lesser extent left upper lobe likely infectious/ inflammatory. Mediastinal adenopathy. , on nonspecific. No evidence of axillary or supraclavicular adenopathy. * Repeat CXR: Improving infiltrates right upper lobe, right lower lobe. Follow- up to resolution advised HTN * Started on ASA 81mg PO daily, Coreg 3.125mg PO BID, Cozaar 50mg PO daily HLD * Crestor 5mg PO QHS * Lipid Panel- Triglycerides 157 Hypothyroidism * Patient is noncompliant with medications * TSH, T3, T4 - WNL Prophylactic Measures * GI PPX: Protonix 20mg PO daily * DVT PPX: SCDs, lovenox 40units SC daily * Heart Healthy Diet with 1500mL fluid restriction * Daily Weights * Strict I & Os * Patient received life vest
[2016-12-30] MEDS: Pantoprazole 40 mg EC Tab PO SCH (10:15)
[2016-12-30] MEDS: Calcium Carbonate 500 mg Chewable Antacid Tab PO SCH ×2 (10:15→18:51)
[2016-12-30] MEDS: Magnesium Oxide 400 mg Tab UD PO SCH (10:15)
[2016-12-30] MEDS: Enoxaparin 40 mg Syringe SC SCH (10:17)
--- NOTE | 2016-12-30 17:49 | CARD ---
APPROVED REPORT EKG Measurement Heart [id number] WI [id number] [id number] <Conclusion> Sinus tachycardia Nonspecific T wave abnormality Abnormal ECG
--- NOTE | 2016-12-31 07:56 | CP.PCM.PN ---
Subjective - Date & Time of Evaluation Date of Evaluation: 12/31/16 Time of Evaluation: 07:55 - Subjective Subjective: Pt feeling better tolerating po Objective - Vital Signs/Intake and Output Vital Signs (last 24 hours): Temp Pulse Resp BP Pulse Ox 98.0 F 89 20 120/78 96 12/30/16 23:09 12/31/16 04:20 12/30/16 23:09 12/30/16 23:09 12/30/16 23:09 Intake and Output: 12/31/16 12/31/16 06:59 18:59 Intake Total 360 Output Total 1750 Balance -1390 - Medications Medications: Current Medications Aspirin (Aspirin Chewable) 81 mg PO DAILY [facility] Last Admin: 12/30/16 10:59 Dose: 81 mg Calcium Carbonate (Tums) 500 mg PO BID [facility] Last Admin: 12/30/16 18:51 Dose: 500 mg Carvedilol (Coreg) 3.125 mg PO BID [facility] Last Admin: 12/30/16 18:51 Dose: 3.125 mg Enoxaparin Sodium (Lovenox) 40 mg SC DAILY [facility] Last Admin: 12/30/16 10:17 Dose: 40 mg Furosemide (Lasix) 20 mg IVP Q12 [facility] Last Admin: 12/30/16 21:26 Dose: 20 mg Guaifenesin (Robitussin) 200 mg PO Q4H PRN PRN Reason: Cough and congestion Losartan Potassium (Cozaar) 50 mg PO DAILY [facility] Last Admin: 12/30/16 11:00 Dose: 50 mg Magnesium Oxide (Mag-Ox) 400 mg PO DAILY [facility] Last Admin: 12/30/16 10:15 Dose: 400 mg Pantoprazole Sodium (Protonix Ec Tab) 40 mg PO DAILY [facility] Last Admin: 12/30/16 10:15 Dose: 40 mg Promethazine HCl/Dextromethorphan (Phenergan Dm Syrup) 5 ml PO Q6H PRN PRN Reason: Cough Rosuvastatin Calcium (Crestor) 5 mg PO HS [facility] Last Admin: 12/30/16 21:26 Dose: 5 mg Spironolactone (Aldactone) 25 mg PO DAILY [facility] Last Admin: 12/30/16 10:15 Dose: 25 mg - Labs Labs: 12/30/16 06:18 12/30/16 06:18 PT 13.1 SECONDS (9.7-12.2) H 12/25/16 16:00 INR 1.2 12/25/16 16:00 APTT 31 SECONDS (21-34) 12/25/16 16:00 - Constitutional Appears: Well - Head Exam Head Exam: ATRAUMATIC - Eye Exam Eye Exam: Normal appearance - ENT Exam ENT Exam: Mucous Membranes Moist - Respiratory Exam Respiratory Exam: NORMAL BREATHING PATTERN - Cardiovascular Exam Cardiovascular Exam: REGULAR RHYTHM Additional comments: prolonged QT - GI/Abdominal Exam GI & Abdominal Exam: Soft - Extremities Exam Extremities Exam: absent: Pedal Edema - Neurological Exam Neurological Exam: Awake - Psychiatric Exam Psychiatric exam: Normal Mood - Skin Skin Exam: Warm Assessment and Plan (1) Dyspnea Assessment & Plan: Pt breathing better Vest present for EP eval for sudden cardiac in lieu of prolonging QT now aboe 520ms amd 18 percent ef Status: Acute (2) New onset of congestive heart failure Status: Acute
[2016-12-31 08:00] LABS: CHLORIDE 97 mmol/L (98-107); POTASSIUM 4.1 mmol/L (3.6-5.2); SODIUM 138 mmol/L (132-148)
[2016-12-31 08:01] LABS: AST/SGOT 40 U/L (17-59); BILIRUBIN,TOTAL 0.8 mg/dL (0.2-1.3); CARBON DIOXIDE 30 mmol/L (22-30); GFR AFRICAN-AMERICAN > 60
[2016-12-31 08:02] LABS: ALB/GLOB RATIO 1.2 (1.0-2.1); ALKALINE PHOSPHATASE 60 U/L (38-126); ALT/SGPT 46 U/L (21-72); BASO % 0.5 % (0.0-2.0); BLOOD UREA NITROGEN 26 mg/dL (9-20); CALCIUM 8.5 mg/dl (8.6-10.4); EOS # 0.5 K/uL (0.0-0.7); GLUCOSE,RANDOM 86 mg/dL (75-110); HEMATOCRIT 46.2 % (35.0-51.0); LYMPH # 2.5 K/uL (1.0-4.3); MAGNESIUM 2.4 mg/dL (1.6-2.3); MEAN CELL VOLUME 75.8 fL (80.0-94.0); MEAN CORPUSCULAR HEMOGLOBIN 24.7 pg (27.0-31.0); MEAN CORPUSCULAR HGB CONC 32.6 g/dL (33.0-37.0); MEAN PLATELET VOLUME 9.8 fL (7.2-11.7); MONO # 1.1 K/uL (0.0-0.8); MONO % 11.7 % (0.0-10.0); NRBC % 0.1 % (0.0-2.0); PHOSPHOROUS 4.2 mg/dL (2.5-4.5); TOTAL PROTEIN 7.2 g/dL (6.3-8.3); WHITE BLOOD COUNT 9.1 K/uL (4.8-10.8)
--- NOTE | 2016-12-31 08:47 | CP.PCM.PN ---
Subjective - Date & Time of Evaluation Date of Evaluation: 12/31/16 Time of Evaluation: 08:00 - Subjective Subjective: Patient was ambulating in the hallway. He did not need assistance however he did look somewhat short of breath when I observed him walking. He denied chest pain. Denied palpitations. We talked about the EKGs and I explained to the patient the pro longed QTC lengths. He is pending going to [facility] tomorrow for further intervention. Objective - Vital Signs/Intake and Output Vital Signs (last 24 hours): Temp Pulse Resp BP Pulse Ox 98.0 F 89 20 120/78 96 12/30/16 23:09 12/31/16 04:20 12/30/16 23:09 12/30/16 23:09 12/30/16 23:09 Intake and Output: 12/31/16 12/31/16 06:59 18:59 Intake Total 360 Output Total 1750 Balance -1390 - Medications Medications: Current Medications Aspirin (Aspirin Chewable) 81 mg PO DAILY [facility] Last Admin: 12/30/16 10:59 Dose: 81 mg Calcium Carbonate (Tums) 500 mg PO BID [facility] Last Admin: 12/30/16 18:51 Dose: 500 mg Carvedilol (Coreg) 3.125 mg PO BID [facility] Last Admin: 12/30/16 18:51 Dose: 3.125 mg Enoxaparin Sodium (Lovenox) 40 mg SC DAILY [facility] Last Admin: 12/30/16 10:17 Dose: 40 mg Furosemide (Lasix) 20 mg IVP Q12 [facility] Last Admin: 12/30/16 21:26 Dose: 20 mg Guaifenesin (Robitussin) 200 mg PO Q4H PRN PRN Reason: Cough and congestion Losartan Potassium (Cozaar) 50 mg PO DAILY [facility] Last Admin: 12/30/16 11:00 Dose: 50 mg Magnesium Oxide (Mag-Ox) 400 mg PO DAILY [facility] Last Admin: 12/30/16 10:15 Dose: 400 mg Pantoprazole Sodium (Protonix Ec Tab) 40 mg PO DAILY [facility] Last Admin: 12/30/16 10:15 Dose: 40 mg Promethazine HCl/Dextromethorphan (Phenergan Dm Syrup) 5 ml PO Q6H PRN PRN Reason: Cough Rosuvastatin Calcium (Crestor) 5 mg PO HS [facility] Last Admin: 12/30/16 21:26 Dose: 5 mg Spironolactone (Aldactone) 25 mg PO DAILY [facility] Last Admin: 12/30/16 10:15 Dose: 25 mg - Labs Labs: 12/31/16 07:26 12/31/16 07:26 PT 13.1 SECONDS (9.7-12.2) H 12/25/16 16:00 INR 1.2 12/25/16 16:00 APTT 31 SECONDS (21-34) 12/25/16 16:00 - Constitutional Appears: Well, No Acute Distress - Head Exam Head Exam: NORMAL INSPECTION - Eye Exam Eye Exam: EOMI - ENT Exam ENT Exam: Mucous Membranes Moist - Respiratory Exam Respiratory Exam: Clear to Ausculation Bilateral, NORMAL BREATHING PATTERN - Cardiovascular Exam Cardiovascular Exam: REGULAR RHYTHM - GI/Abdominal Exam GI & Abdominal Exam: Soft, Normal Bowel Sounds - Neurological Exam Neurological Exam: Alert, Awake, CN II-XII Intact, Oriented x3 Neuro motor strength exam: Left Upper Extremity: 5, Right Upper Extremity: 5, Left Lower Extremity: 5, Right Lower Extremity: 5 - Skin Skin Exam: Normal Color, Warm Assessment and Plan - Assessment and Plan (Free Text) Assessment: New Onset CHF 12/31: He is able to ambulate however slowly. For transfer hopefully tomorrow, the QTC still look long as of yesterday afternoon EKGs 12/30: Patient now has lfe vest but the QT interval remains very prolonged. He remains under monitoring, per my understanding there are plans for potential transfer to [facility] for further interventions. * Admit to Telemetry * BNP: 3120 * EKG: Sinus Tachycardia @135 * CXR: RLL infiltrate, cardiomegaly, venous congestion * D-dimer <200 * Lasix 20mg IVP Q12H * ROMIs negative, no changes on EKG * Cardiology consulted- Dr. Hillman- Suggested EP Cardio consult. * ECHO ~18% * Dr. Peralta consulted- Echo shows EF of 18% with severely dilated LV, global hypokinesis and moderate MR. ICD vest for dilated cardiomyopathy with reduced ejection fraction for primary prophylaxis against sudden cardiac . Alcohol cessation and low salt diet. Will optimize CHF meds: * Stop ACEi and start Cozaar 50 mg PO daily * Decrease Coreg from 6.25 to 3.125 PO BID * Continue Aldactone 25 mg PO daily * Continue Lasix 20 mg IVP Q12H * Continue Aspirin 81 mg PO daily Prolonged Q-T interval on ECG 12/31: QTC are still long as of yesterday afternoon EKGs 12/30: As mentioned above pending further interventions * Echo 12/25/16: LVEF 18%, normal LV wall thickness, severely impaired LV and RV systolic fxn, global LV hypokinesis, severely dilated LV, moderate MR; no LV thrombus noted * EKG 12/25/16: Sinus tachycardia at 135, Prolonged QTc at 482, Nonspecific T wave abnormality, Abnormal ECG * EKG 12/26/16: Sinus tachycardia at 117, Prolonged QTc at 504, Nonspecific T wave abnormality, Abnormal ECG * EKG 12/28/16: Sinus tachycardia at 113, Prolonged QTc at 523, Possible Left atrial enlargement, Nonspecific T wave abnormality, Abnormal ECG * EKG 12/29/16: Sinus tachycardia at 103, Prolonged QTc at 526, Septal infarct ( age undetermined), Abnormal ECG * Likely 2/2 new onset CHF with low EF (18%) vs hx hypothyroidism with reported medication non-compliance * TSH high normal on admission, Free T4 low normal on admission; new thyroid panel ordered, will f/u, if hypothyroid then would consider starting on synthroid * Avoid all QT prolonging medications * Continue CHF medication management * 1g IV mag x2 ordered, will repeat EKG after magnesium given and reassess Possible PNA 12/31: Monitor WBCs, cefepime wa stopped yesterday 12/30: WBC is stable, no fevers. The cultures have been negative. Will stop cefepime today and monitor. * CXR: RLL infiltrate, cardiomegaly, venous congestion * Stopped Azithromycin due to QTc prolongation, stopped rocephin, patient switched to Cefepime (12/27) * CT Chest w/o Contrast: Multifocal infiltrates primarily affecting all lobes of the right lung and to lesser extent left upper lobe likely infectious/ inflammatory. Mediastinal adenopathy. , on nonspecific. No evidence of axillary or supraclavicular adenopathy. * Repeat CXR: Improving infiltrates right upper lobe, right lower lobe. Follow- up to resolution advised HTN * Started on ASA 81mg PO daily, Coreg 3.125mg PO BID, Cozaar 50mg PO daily HLD * Crestor 5mg PO QHS * Lipid Panel- Triglycerides 157 Hypothyroidism * Patient is noncompliant with medications * TSH, T3, T4 - WNL Prophylactic Measures * GI PPX: Protonix 20mg PO daily * DVT PPX: SCDs, lovenox 40units SC daily * Heart Healthy Diet with 1500mL fluid restriction * Daily Weights * Strict I & Os * Patient received life vest
[2016-12-31] MEDS: Calcium Carbonate 500 mg Chewable Antacid Tab PO SCH ×2 (09:39→18:03)
[2016-12-31] MEDS: Magnesium Oxide 400 mg Tab UD PO SCH (09:39)
[2016-12-31] MEDS: Pantoprazole 40 mg EC Tab PO SCH (09:39)
[2016-12-31] MEDS: Enoxaparin 40 mg Syringe SC SCH (09:43)
[2017-01-01 07:28] LABS: BASO # 0.1 K/uL (0.0-0.2); BASO % 0.9 % (0.0-2.0); EOS # 0.4 K/uL (0.0-0.7); EOS % 3.7 % (0.0-4.0); HEMATOCRIT 47.8 % (35.0-51.0); LYMPH # 2.3 K/uL (1.0-4.3); LYMPH % 22.8 % (20.0-40.0); MEAN CELL VOLUME 75.6 fL (80.0-94.0); MEAN CORPUSCULAR HEMOGLOBIN 24.8 pg (27.0-31.0); MEAN CORPUSCULAR HGB CONC 32.7 g/dL (33.0-37.0); MEAN PLATELET VOLUME 9.6 fL (7.2-11.7); MONO # 1.1 K/uL (0.0-0.8); MONO % 11.4 % (0.0-10.0); NRBC % 0.1 % (0.0-2.0)
--- NOTE | 2017-01-01 07:58 | CP.PCM.DIS ---
<Mara Edwards - Last Filed: 01/01/17 07:46> Provider - Provider Date of Admission: 12/25/16 16:44 Attending physician: Hugo Hercules DO Time Spent in preparation of Discharge (in minutes): 35 Hospital Course - Lab Results Lab Results: Micro Results 12/25/16 17:00 Blood Blood Culture - Final NO GROWTH AFTER 5 DAYS 12/25/16 17:00 Blood Gram Stain - Final TEST NOT PERFORMED 12/25/16 17:00 Blood Blood Culture - Final NO GROWTH AFTER 5 DAYS 12/25/16 17:00 Blood Gram Stain - Final TEST NOT PERFORMED Most Recent Lab Values WBC 10.0 K/uL (4.8-10.8) 01/01/17 07:15 RBC 6.32 Mil/uL (4.40-5.90) H 01/01/17 07:15 Hgb 15.7 g/dL (12.0-18.0) 01/01/17 07:15 Hct 47.8 % (35.0-51.0) 01/01/17 07:15 MCV 75.6 fL (80.0-94.0) L 01/01/17 07:15 MCH 24.8 pg (27.0-31.0) L 01/01/17 07:15 MCHC 32.7 g/dL (33.0-37.0) L 01/01/17 07:15 RDW 15.0 % (11.5-14.5) H 01/01/17 07:15 Plt Count 243 K/uL (130-400) 01/01/17 07:15 MPV 9.6 fL (7.2-11.7) 01/01/17 07:15 Neut % (Auto) 61.2 % (50.0-75.0) 01/01/17 07:15 Lymph % (Auto) 22.8 % (20.0-40.0) 01/01/17 07:15 Bee % (Auto) 11.4 % (0.0-10.0) H 01/01/17 07:15 Eos % (Auto) 3.7 % (0.0-4.0) 01/01/17 07:15 Baso % (Auto) 0.9 % (0.0-2.0) 01/01/17 07:15 Neut # 6.1 K/uL (1.8-7.0) 01/01/17 07:15 Lymph # 2.3 K/uL (1.0-4.3) 01/01/17 07:15 Bee # 1.1 K/uL (0.0-0.8) H 01/01/17 07:15 Eos # 0.4 K/uL (0.0-0.7) 01/01/17 07:15 Baso # 0.1 K/uL (0.0-0.2) 01/01/17 07:15 PT 13.1 SECONDS (9.7-12.2) H 12/25/16 16:00 INR 1.2 12/25/16 16:00 APTT 31 SECONDS (21-34) 12/25/16 16:00 D-Dimer, Quantitative < 200 ng/mlDDU (0-243) 12/25/16 16:00 pO2 35 mm/Hg (30-55) 12/25/16 16:20 VBG pH 7.45 (7.32-7.43) H 12/25/16 16:20 VBG pCO2 41 mmHg (40-60) 12/25/16 16:20 VBG HCO3 27.4 mmol/L 12/25/16 16:20 VBG Total CO2 29.8 mmol/L (22-28) H 12/25/16 16:20 VBG O2 Sat (Calc) 76.7 % (40-65) H 12/25/16 16:20 VBG Base Excess 4.1 mmol/L (0.0-2.0) H 12/25/16 16:20 VBG Potassium 3.8 mmol/L (3.6-5.2) 12/25/16 16:20 Sodium 141.0 mmol/l (132-148) 12/25/16 16:20 Chloride 110.0 mmol/L (98-107) H 12/25/16 16:20 Glucose 87 mg/dl (75-110) 12/25/16 16:20 Lactate 1.8 mmol/L (0.7-2.1) 12/25/16 16:20 FiO2 21.0 % 12/25/16 16:20 Sodium 138 mmol/L (132-148) 12/31/16 07:26 Potassium 4.1 mmol/L (3.6-5.2) 12/31/16 07:26 Chloride 97 mmol/L (98-107) L 12/31/16 07:26 Carbon Dioxide 30 mmol/L (22-30) 12/31/16 07:26 Anion Gap 15 (10-20) 12/31/16 07:26 BUN 26 mg/dL (9-20) H 12/31/16 07:26 Creatinine 1.2 MG/DL (0.8-1.5) 12/31/16 07:26 Est GFR ( Amer) > 60 12/31/16 07:26 Est GFR (Non-Af Amer) > 60 12/31/16 07:26 Random Glucose 86 mg/dL (75-110) 12/31/16 07:26 Hemoglobin A1c 5.4 % (4.2-6.5) 12/26/16 06:17 Calcium 8.5 mg/dl (8.6-10.4) L 12/31/16 07:26 Phosphorus 4.2 mg/dL (2.5-4.5) 12/31/16 07:26 Magnesium 2.4 mg/dL (1.6-2.3) H 12/31/16 07:26 Total Bilirubin 0.8 mg/dL (0.2-1.3) 12/31/16 07:26 AST 40 U/L (17-59) 12/31/16 07:26 ALT 46 U/L (21-72) 12/31/16 07:26 Alkaline Phosphatase 60 U/L (38-126) 12/31/16 07:26 Total Creatine Kinase 215 U/L (55-170) H 12/26/16 12:05 CK-MB (Mass) 0.65 ng/mL (0.0-3.38) 12/26/16 12:05 Troponin I 0.0340 ng/mL (0.00-0.120) 12/25/16 16:00 Troponin I, Quant 0.0230 ng/mL (0.00-0.120) 12/26/16 12:05 NT-Pro-B Natriuret Pep 3120 pg/mL (0-450) H 12/25/16 16:00 Total Protein 7.2 g/dL (6.3-8.3) 12/31/16 07:26 Albumin 4.0 g/dL (3.5-5.0) 12/31/16 07:26 Globulin 3.2 gm/dL (2.2-3.9) 12/31/16 07:26 Albumin/Globulin Ratio 1.2 (1.0-2.1) 12/31/16 07:26 Triglycerides 157 mg/dL (0-149) H 12/26/16 06:17 Cholesterol 182 mg/dL (0-199) 12/26/16 06:17 LDL Cholesterol Direct 128 mg/dL (0-129) 12/26/16 06:17 HDL Cholesterol 33 mg/dL (30-70) 12/26/16 06:17 Free T4 1.21 ng/dL (0.78-2.19) 12/29/16 14:00 Thyroxine (T4) 10.7 ug/dL (5.5-11.0) 12/29/16 14:00 Total T3 1.82 nmol/L (1.49-2.60) 12/29/16 14:00 TSH 3rd Generation 3.63 mIU/L (0.46-4.68) 12/29/16 14:00 Venous Blood Potassium 3.8 mmol/L (3.6-5.2) 12/25/16 16:20 - Hospital Course Hospital Course: Upon Admission: CC: SOB HPI: 41M with PMHx HTN, HLD, and Hypothyroidism presents to the ED complaining of SOB x 1 week. Patient noticed for the past month, his breath has been more labored when ambulating, walking up stairs, and walking for longer distances. He reports he has to sleep on 3-4 pillows at night, he is unable to lay flat. For the past week he stated he noticed he became SOB just ambulating short distances, and he has had to sleep sitting up completely. He admits to a productive cough with white/ clear sputum, SOB, and some chest pain accompanied with the coughing and sometimes during ambulation. Denied fever, chills, headache, abdominal pain, or urinary symptoms. PMHx: HTN, HLD, and Hypothyroidism PSHx: Denied Meds: Denied All: NKDA SHx: Admitted to smoking cigars 1-2 per month, social drinking, and denied any illicit drug use FM: DM, history of CT Throughout Hospital Course: Patient was admitted for new onset CHF and Pneumonia. On admission he was tachycardic and SOB. BNP: 3120, EKG: Sinus Tachycardia @135, CXR: RLL infiltrate, cardiomegaly, venous congestion, and D-dimer <200. Dr. Peralta was consulted. Echo shows EF of 18% with severely dilated LV, global hypokinesis and moderate MR. Patient was evaluated and given a LifeVest. He was started on blood pressure medications and lasix for his CHF. He was also started on Azithromycin and Rocephin for his pneumonia. However, he started to developed QTc prolongation, thus Azithromycin was stopped. He was continued on another antibiotic. Several EKGs were performed with replenishment of Magnesium , however his QTc remained prolonged. As per Cardiology patient is to be transferred to [facility] for EP study and AICD placement. Patient instructed on medications to continue taking, limit in fluid intake, salt restriction, and smoking cessation. Patient is to follow up with Dr. Peralta and with the [facility] upon discharge. This is a brief summary of the patient's hospital course. Please review the patient's EMR for the full record. Discharge Exam - Head Exam Head Exam: NORMAL INSPECTION - Eye Exam Eye Exam: Normal appearance - ENT Exam ENT Exam: Mucous Membranes Moist - Respiratory Exam Respiratory Exam: Clear to PA & Lateral, NORMAL BREATHING PATTERN. absent: Decreased Breath Sounds, Rales, Rhonchi, Wheezes, Respiratory Distress - Cardiovascular Exam Cardiovascular Exam: REGULAR RHYTHM, RRR - GI/Abdominal Exam GI & Abdominal Exam: Normal Bowel Sounds, Soft. absent: Distended, Tenderness - Extremities Exam Extremities exam: normal inspection, pedal pulses present - Neurological Exam Neurological exam: Alert, Oriented x3 - Skin Skin Exam: Dry, Intact, Normal Color, Warm Discharge Plan - Discharge Medications Prescriptions: RX: Aspirin [Aspirin Chewable] 81 mg PO DAILY #30 RX: Carvedilol [Coreg] 3.125 mg PO BID #60 tab Furosemide [Lasix] 20 mg PO BID #60 tablet RX: Losartan [Cozaar] 50 mg PO DAILY #30 tab RX: Rosuvastatin Calcium [Crestor] 5 mg PO HS #30 tab RX: Spironolactone [Aldactone] 25 mg PO DAILY #30 tab - Follow Up Plan Condition: STABLE Disposition: Trans to Other Acute Care Hosp Instructions: Spironolactone (By mouth), Furosemide (By mouth), Aspirin (By mouth), Losartan (By mouth), Carvedilol (By mouth), Rosuvastatin (By mouth), Heart Failure (DC), Heart Failure (GEN), Pacemaker (DC), Pacemaker (GEN), Pulmonary Edema (DC), Pulmonary Edema (GEN), Community Acquired Pneumonia (DC), Community Acquired Pneumonia (GEN), Bacterial Pneumonia (DC), Bacterial Pneumonia (GEN), Ascites (DC), Ascites (GEN) Additional Instructions: Patient is to continue taking the following medications: Aspirin 81mg by mouth daily, Coreg 3.125 by mouth TWICE a day, Lasix 20mg by mouth TWICE a day, Spironolactone 25mg by mouth daily, Cozaar 50mg by mouth daily, and Crestor 5mg by mouth daily. Patient is to follow up with Dr. Peralta (Dough Mixer Operator) after being discharged from [place]. Patient is to follow up in the [facility] after discharge from [place] for follow up routine care. Patient instructed to limit his fluid intake to less than 1.5 L per day and to limit his salt intake. Please return to the ED if your symptoms return or worsen. Referrals: [facility] at [facility] [Outside] Alycia Peralta MD [Staff Provider] - <Sharon Carney V - Last Filed: 01/01/17 22:13> Provider - Provider Date of Admission: 12/25/16 16:44 Attending physician: Hugo Hercules, Hospital Course - Lab Results Lab Results: Micro Results 12/25/16 17:00 Blood Blood Culture - Final NO GROWTH AFTER 5 DAYS 12/25/16 17:00 Blood Gram Stain - Final TEST NOT PERFORMED 12/25/16 17:00 Blood Blood Culture - Final NO GROWTH AFTER 5 DAYS 12/25/16 17:00 Blood Gram Stain - Final TEST NOT PERFORMED Most Recent Lab Values WBC 10.0 K/uL (4.8-10.8) 01/01/17 07:15 RBC 6.32 Mil/uL (4.40-5.90) H 01/01/17 07:15 Hgb 15.7 g/dL (12.0-18.0) 01/01/17 07:15 Hct 47.8 % (35.0-51.0) 01/01/17 07:15 MCV 75.6 fL (80.0-94.0) L 01/01/17 07:15 MCH 24.8 pg (27.0-31.0) L 01/01/17 07:15 MCHC 32.7 g/dL (33.0-37.0) L 01/01/17 07:15 RDW 15.0 % (11.5-14.5) H 01/01/17 07:15 Plt Count 243 K/uL (130-400) 01/01/17 07:15 MPV 9.6 fL (7.2-11.7) 01/01/17 07:15 Neut % (Auto) 61.2 % (50.0-75.0) 01/01/17 07:15 Lymph % (Auto) 22.8 % (20.0-40.0) 01/01/17 07:15 Bee % (Auto) 11.4 % (0.0-10.0) H 01/01/17 07:15 Eos % (Auto) 3.7 % (0.0-4.0) 01/01/17 07:15 Baso % (Auto) 0.9 % (0.0-2.0) 01/01/17 07:15 Neut # 6.1 K/uL (1.8-7.0) 01/01/17 07:15 Lymph # 2.3 K/uL (1.0-4.3) 01/01/17 07:15 Bee # 1.1 K/uL (0.0-0.8) H 01/01/17 07:15 Eos # 0.4 K/uL (0.0-0.7) 01/01/17 07:15 Baso # 0.1 K/uL (0.0-0.2) 01/01/17 07:15 PT 13.1 SECONDS (9.7-12.2) H 12/25/16 16:00 INR 1.2 12/25/16 16:00 APTT 31 SECONDS (21-34) 12/25/16 16:00 D-Dimer, Quantitative < 200 ng/mlDDU (0-243) 12/25/16 16:00 pO2 35 mm/Hg (30-55) 12/25/16 16:20 VBG pH 7.45 (7.32-7.43) H 12/25/16 16:20 VBG pCO2 41 mmHg (40-60) 12/25/16 16:20 VBG HCO3 27.4 mmol/L 12/25/16 16:20 VBG Total CO2 29.8 mmol/L (22-28) H 12/25/16 16:20 VBG O2 Sat (Calc) 76.7 % (40-65) H 12/25/16 16:20 VBG Base Excess 4.1 mmol/L (0.0-2.0) H 12/25/16 16:20 VBG Potassium 3.8 mmol/L (3.6-5.2) 12/25/16 16:20 Sodium 141.0 mmol/l (132-148) 12/25/16 16:20 Chloride 110.0 mmol/L (98-107) H 12/25/16 16:20 Glucose 87 mg/dl (75-110) 12/25/16 16:20 Lactate 1.8 mmol/L (0.7-2.1) 12/25/16 16:20 FiO2 21.0 % 12/25/16 16:20 Sodium 138 mmol/L (132-148) 01/01/17 07:15 Potassium 4.1 mmol/L (3.6-5.2) 01/01/17 07:15 Chloride 96 mmol/L (98-107) L 01/01/17 07:15 Carbon Dioxide 30 mmol/L (22-30) 01/01/17 07:15 Anion Gap 15 (10-20) 01/01/17 07:15 BUN 25 mg/dL (9-20) H 01/01/17 07:15 Creatinine 1.2 MG/DL (0.8-1.5) 01/01/17 07:15 Est GFR ( Amer) > 60 01/01/17 07:15 Est GFR (Non-Af Amer) > 60 01/01/17 07:15 Random Glucose 82 mg/dL (75-110) 01/01/17 07:15 Hemoglobin A1c 5.4 % (4.2-6.5) 12/26/16 06:17 Calcium 8.6 mg/dl (8.6-10.4) 01/01/17 07:15 Phosphorus 3.8 mg/dL (2.5-4.5) 01/01/17 07:15 Magnesium 2.4 mg/dL (1.6-2.3) H 01/01/17 07:15 Total Bilirubin 0.8 mg/dL (0.2-1.3) 01/01/17 07:15 AST 46 U/L (17-59) 01/01/17 07:15 ALT 52 U/L (21-72) 01/01/17 07:15 Alkaline Phosphatase 63 U/L (38-126) 01/01/17 07:15 Total Creatine Kinase 215 U/L (55-170) H 12/26/16 12:05 CK-MB (Mass) 0.65 ng/mL (0.0-3.38) 12/26/16 12:05 Troponin I 0.0340 ng/mL (0.00-0.120) 12/25/16 16:00 Troponin I, Quant 0.0230 ng/mL (0.00-0.120) 12/26/16 12:05 NT-Pro-B Natriuret Pep 3120 pg/mL (0-450) H 12/25/16 16:00 Total Protein 7.3 g/dL (6.3-8.3) 01/01/17 07:15 Albumin 4.0 g/dL (3.5-5.0) 01/01/17 07:15 Globulin 3.2 gm/dL (2.2-3.9) 01/01/17 07:15 Albumin/Globulin Ratio 1.2 (1.0-2.1) 01/01/17 07:15 Triglycerides 157 mg/dL (0-149) H 12/26/16 06:17 Cholesterol 182 mg/dL (0-199) 12/26/16 06:17 LDL Cholesterol Direct 128 mg/dL (0-129) 12/26/16 06:17 HDL Cholesterol 33 mg/dL (30-70) 12/26/16 06:17 Free T4 1.21 ng/dL (0.78-2.19) 12/29/16 14:00 Thyroxine (T4) 10.7 ug/dL (5.5-11.0) 12/29/16 14:00 Total T3 1.82 nmol/L (1.49-2.60) 12/29/16 14:00 TSH 3rd Generation 3.63 mIU/L (0.46-4.68) 12/29/16 14:00 Venous Blood Potassium 3.8 mmol/L (3.6-5.2) 12/25/16 16:20 Attending/Attestation - Attestation I have personally seen and examined this patient.: Yes I have fully participated in the care of the patient.: Yes I have reviewed all pertinent clinical information, including history, physical exam and plan: Yes Notes (Text): Patient seen, examined and case discussed with day-time resident. Patient denies acute complaints at bedside. Patient is aware he is going to [place] for possible AICD placement. Discussed with patient, he will need to establish care at the [facility] ([phone]) which i placed in his cell phone to establish care post-[facility] [place] Hospitalization. Discussed with patient extensively regarding tobacco cesstion, including him posing risks including cancer and if he continues to smoke cigars. Heart Failure Core Measures completed Discharged on ASA, beta-gustavo, statin, arb, diuretic for acute systolic CHF. Assessment/Plan 1) Acute Systolic Congestive Heart Failure * Admit to Telemetry * BNP: 3120 * EKG: Sinus Tachycardia @135 * CXR: RLL infiltrate, cardiomegaly, venous congestion * D-dimer <200 * Lasix 20mg IVP Q12H * ROMIs negative, no changes on EKG * Cardiology consulted- Dr. Hillman- Suggested EP Cardio consult. * Cardiology EP-Dr. Peralta-help appreciated * ECHO ~18% * Dr. Peralta consulted- Echo shows EF of 18% with severely dilated LV, global hypokinesis and moderate MR. ICD vest for dilated cardiomyopathy with reduced ejection fraction for primary prophylaxis against sudden cardiac . Alcohol cessation and low salt diet. Will optimize CHF meds: * Cozaar 50 mg PO daily * Coreg 3.125 PO BID * Aldactone 25 mg PO daily * Lasix 20 mg PO Q12H * Aspirin 81 mg PO daily * Crestor 5mg POqHS * Patient transferred to [place] for possible AICD placement. 2) Prolonged Q-T interval on ECG * Echo 12/25/16: LVEF 18%, normal LV wall thickness, severely impaired LV and RV systolic fxn, global LV hypokinesis, severely dilated LV, moderate MR; no LV thrombus noted * EKG 12/25/16: Sinus tachycardia at 135, Prolonged QTc at 482, Nonspecific T wave abnormality, Abnormal ECG * EKG 12/26/16: Sinus tachycardia at 117, Prolonged QTc at 504, Nonspecific T wave abnormality, Abnormal ECG * EKG 12/28/16: Sinus tachycardia at 113, Prolonged QTc at 523, Possible Left atrial enlargement, Nonspecific T wave abnormality, Abnormal ECG * EKG 12/29/16: Sinus tachycardia at 103, Prolonged QTc at 526, Septal infarct ( age undetermined), Abnormal ECG * Likely 2/2 new onset CHF with low EF (18%) * Electrolytes monitored and repleted during admission * Avoid all QT prolonging medications * Continue CHF medication management 3) Pneumonia * Completed IV Antibotics on 12/30/16 * CXR: RLL infiltrate, cardiomegaly, venous congestion * Stopped Azithromycin due to QTc prolongation, stopped rocephin, patient switched to Cefepime (12/27) * CT Chest w/o Contrast: Multifocal infiltrates primarily affecting all lobes of the right lung and to lesser extent left upper lobe likely infectious/ inflammatory. Mediastinal adenopathy. , on nonspecific. No evidence of axillary or supraclavicular adenopathy. * Repeat CXR: Improving infiltrates right upper lobe, right lower lobe. Follow- up to resolution advised 4) HTN * Started on ASA 81mg PO daily, Coreg 3.125mg PO BID, Cozaar 50mg PO daily 5) Hyperlipidemia * Crestor 5mg PO QHS * Lipid Panel- Triglycerides 157 6) Hypothyroidism * Patient is noncompliant with medications * TSH, T3, T4 - WNL; will need to follow-up in the clinic 7)Prophylactic Measures * GI PPX: Protonix 20mg PO daily * DVT PPX: SCDs, lovenox 40units SC daily * Heart Healthy Diet with 1500mL fluid restriction * Daily Weights * Strict I & Os * Patient received life vest * Transferred out to [place] today for possible AICD Placement
--- NOTE | 2017-01-01 08:01 | PCM.HF ---
Heart Failure Core Measure - Heart Failure Ejection Fraction: Less Than 40 % Left Ventricular Function to be assessed after discharge: No BRODY Inhibitor Prescribed: No Contraindication/Reason for not providing: ARB Beta-Nel Prescribed: Carvedilol Angiotensin II Receptor Nel Prescribed: Yes AnticoagulationTherapy for Atrial Fibrillation/Atrialflutter: Yes Aldosterone Antagonist Prescribed: Yes Hydralazine Nitrate Prescribed: No Contraindication/Reason for not providing: not needed Implantable Cardioverter Defibrillator Therapy: Yes Contraindication/Reason for not providing: Scheduled for placement 01/01/17 in [facility]. Cardiac Resynchronization Therapy Prescribed: No Contraindication/Reason for not providing: Scheduled for AICD placement 01/01/17 in [facility]. - Follow up Follow Up Date (must be within 7 days from discharge): 01/08/17 Follow Up Time: 12:00
[2017-01-01 08:30] VITALS: TEMP 97.7; O2SAT 97
[2017-01-01 08:30] LABS: CHLORIDE 96 mmol/L (98-107)
[2017-01-01 08:32] LABS: POTASSIUM 4.1 mmol/L (3.6-5.2); SODIUM 138 mmol/L (132-148)
[2017-01-01 08:34] LABS: ALB/GLOB RATIO 1.2 (1.0-2.1); ALKALINE PHOSPHATASE 63 U/L (38-126); ALT/SGPT 52 U/L (21-72); AST/SGOT 46 U/L (17-59); BILIRUBIN,TOTAL 0.8 mg/dL (0.2-1.3); BLOOD UREA NITROGEN 25 mg/dL (9-20); CARBON DIOXIDE 30 mmol/L (22-30); GFR AFRICAN-AMERICAN > 60; GLUCOSE,RANDOM 82 mg/dL (75-110); TOTAL PROTEIN 7.3 g/dL (6.3-8.3)
[2017-01-01 08:35] LABS: CALCIUM 8.6 mg/dl (8.6-10.4); MAGNESIUM 2.4 mg/dL (1.6-2.3); PHOSPHOROUS 3.8 mg/dL (2.5-4.5)
--- NOTE | 2017-01-01 09:32 | CP.PCM.PN ---
<[facility] - Last Filed: 01/01/17 09:34> Subjective - Date & Time of Evaluation Date of Evaluation: 01/01/17 Time of Evaluation: 09:32 - Subjective Subjective: Pt seen and examined at bedside. Pt doing well overnight with no acute events as per nursing. Pt with no complaints at this time. Pt with Heart rate between 90-110 overnight. Recent EKG on 12/30, shows NSR with mildly prolonged QT interval. Denies CP and SOB at this time. Objective - Vital Signs/Intake and Output Vital Signs (last 24 hours): Temp Pulse Resp BP Pulse Ox 97.7 F 98 H 18 115/71 97 01/01/17 08:28 01/01/17 08:28 01/01/17 08:28 01/01/17 08:28 01/01/17 08:28 Intake and Output: 01/01/17 01/01/17 06:59 18:59 Intake Total 320 Output Total 1725 Balance -1405 - Medications Medications: Current Medications Aspirin (Aspirin Chewable) 81 mg PO DAILY ON LICENSE OF [facility] Last Admin: 12/31/16 09:39 Dose: 81 mg Calcium Carbonate (Tums) 500 mg PO BID ON LICENSE OF [facility] Last Admin: 12/31/16 18:03 Dose: 500 mg Carvedilol (Coreg) 3.125 mg PO BID ON LICENSE OF [facility] Last Admin: 12/31/16 18:03 Dose: 3.125 mg Enoxaparin Sodium (Lovenox) 40 mg SC DAILY ON LICENSE OF [facility] Last Admin: 12/31/16 09:43 Dose: Not Given Furosemide (Lasix) 20 mg IVP Q12 ON LICENSE OF [facility] Last Admin: 12/31/16 21:40 Dose: 20 mg Guaifenesin (Robitussin) 200 mg PO Q4H PRN PRN Reason: Cough and congestion Losartan Potassium (Cozaar) 50 mg PO DAILY ON LICENSE OF [facility] Last Admin: 12/31/16 10:37 Dose: 50 mg Magnesium Oxide (Mag-Ox) 400 mg PO DAILY ON LICENSE OF [facility] Last Admin: 12/31/16 09:39 Dose: 400 mg Pantoprazole Sodium (Protonix Ec Tab) 40 mg PO DAILY ON LICENSE OF [facility] Last Admin: 12/31/16 09:39 Dose: 40 mg Promethazine HCl/Dextromethorphan (Phenergan Dm Syrup) 5 ml PO Q6H PRN PRN Reason: Cough Rosuvastatin Calcium (Crestor) 5 mg PO HS ON LICENSE OF [facility] Last Admin: 12/31/16 21:39 Dose: 5 mg Spironolactone (Aldactone) 25 mg PO DAILY ON LICENSE OF [facility] Last Admin: 12/31/16 09:39 Dose: 25 mg - Labs Labs: 01/01/17 07:15 01/01/17 07:15 PT 13.1 SECONDS (9.7-12.2) H 12/25/16 16:00 INR 1.2 12/25/16 16:00 APTT 31 SECONDS (21-34) 12/25/16 16:00 - Constitutional Appears: Well, No Acute Distress - Head Exam Head Exam: ATRAUMATIC, NORMAL INSPECTION, NORMOCEPHALIC - Respiratory Exam Respiratory Exam: Clear to Ausculation Bilateral, NORMAL BREATHING PATTERN. absent: Rhonchi, Wheezes - Cardiovascular Exam Cardiovascular Exam: RRR, +S1, +S2 - GI/Abdominal Exam GI & Abdominal Exam: Soft, Normal Bowel Sounds. absent: Tenderness - Neurological Exam Neurological Exam: Alert, Awake, Oriented x3 - Psychiatric Exam Psychiatric exam: Normal Affect, Normal Mood Assessment and Plan (1) Prolonged Q-T interval on ECG Assessment & Plan: Likely secondary to new onset CHF Avoid QT prolonging medications Will have ICD placed Status: Acute (2) New onset of congestive heart failure Assessment & Plan: Likely secondary to chronic alcohol abuse Pt received life vest for prevention of SCD Pt will have ICD placed Continue Cozaar, Coreg, Lasix, Aldactone, and ASA Status: Acute <Alycia Peralta - Last Filed: 01/01/17 11:33> Objective - Vital Signs/Intake and Output Vital Signs (last 24 hours): Temp Pulse Resp BP Pulse Ox 97.7 F 102 H 18 101/70 97 01/01/17 08:28 01/01/17 10:39 01/01/17 08:28 01/01/17 10:39 01/01/17 08:28 Intake and Output: 01/01/17 01/01/17 06:59 18:59 Intake Total 320 Output Total 1725 Balance -1405 - Medications Medications: Current Medications Aspirin (Aspirin Chewable) 81 mg PO DAILY ON LICENSE OF [facility] Last Admin: 01/01/17 10:43 Dose: 81 mg Calcium Carbonate (Tums) 500 mg PO BID ON LICENSE OF [facility] Last Admin: 01/01/17 10:44 Dose: Not Given Carvedilol (Coreg) 3.125 mg PO BID ON LICENSE OF [facility] Last Admin: 01/01/17 10:44 Dose: Not Given Enoxaparin Sodium (Lovenox) 40 mg SC DAILY ON LICENSE OF [facility] Last Admin: 01/01/17 10:44 Dose: Not Given Furosemide (Lasix) 20 mg IVP Q12 ON LICENSE OF [facility] Last Admin: 01/01/17 10:39 Dose: 20 mg Guaifenesin (Robitussin) 200 mg PO Q4H PRN PRN Reason: Cough and congestion Losartan Potassium (Cozaar) 50 mg PO DAILY ON LICENSE OF [facility] Last Admin: 01/01/17 10:43 Dose: 50 mg Magnesium Oxide (Mag-Ox) 400 mg PO DAILY ON LICENSE OF [facility] Last Admin: 01/01/17 10:43 Dose: 400 mg Pantoprazole Sodium (Protonix Ec Tab) 40 mg PO DAILY ON LICENSE OF [facility] Last Admin: 01/01/17 10:43 Dose: 40 mg Promethazine HCl/Dextromethorphan (Phenergan Dm Syrup) 5 ml PO Q6H PRN PRN Reason: Cough Rosuvastatin Calcium (Crestor) 5 mg PO HS ON LICENSE OF [facility] Last Admin: 12/31/16 21:39 Dose: 5 mg Spironolactone (Aldactone) 25 mg PO DAILY ON LICENSE OF [facility] Last Admin: 01/01/17 10:43 Dose: 25 mg - Labs Labs: 01/01/17 07:15 01/01/17 07:15 PT 13.1 SECONDS (9.7-12.2) H 12/25/16 16:00 INR 1.2 12/25/16 16:00 APTT 31 SECONDS (21-34) 12/25/16 16:00 Assessment and Plan (1) Dyspnea Status: Acute (2) New onset of congestive heart failure Status: Acute Attending/Attestation - Attestation I have personally seen and examined this patient.: Yes I have fully participated in the care of the patient.: Yes I have reviewed all pertinent clinical information, including history, physical exam and plan: Yes Notes (Text): 01/01/17 11:32 for eps possible ICD
[2017-01-01] MEDS: Pantoprazole 40 mg EC Tab PO SCH (10:43)
[2017-01-01] MEDS: Magnesium Oxide 400 mg Tab UD PO SCH (10:43)
[2017-01-01] MEDS: Calcium Carbonate 500 mg Chewable Antacid Tab PO SCH (10:44)
[2017-01-01] MEDS: Enoxaparin 40 mg Syringe SC SCH (10:44)
[2017-01-01 13:42] VITALS: BP 104/72; RESP 20
[2017-01-01 14:18] VITALS: PULSE 117
== END 2017-01-01 12:45 | disposition short-term general hospital (02) | DRG 544 ==
LOC: C.ER 15:15 → C.6T 16:44
PROVIDERS: ADMIT Hospitalist; ATTEND Hospitalist
DX: I11.0 Hypertensive heart disease with heart failure (principal); J18.9 Pneumonia, unspecified organism; I42.0 Dilated cardiomyopathy; I50.43 Acute on chronic combined systolic (congestive) and diastolic (congestive) heart failure; E78.00 Pure hypercholesterolemia, unspecified; E78.5 Hyperlipidemia, unspecified; E03.9 Hypothyroidism, unspecified; Z91.14 Patient's other noncompliance with medication regimen; E11.9 Type 2 diabetes mellitus without complications; I34.0 Nonrheumatic mitral (valve) insufficiency; Z87.442 Personal history of urinary calculi; I45.81 Long QT syndrome; F17.200 Nicotine dependence, unspecified, uncomplicated